=== PATIENT | female | born 1940 | race Caucasian/White ===

== ENCOUNTER 2017-03-12 16:08 | Inpatient (IN) ==
--- NOTE | 2017-03-12 16:49 | Emergency Department Note ---
Disposition Clinical Impression: Cellulitis, Lower extremity edema Disposition: Admitted As Inpatient Condition: Good Time of Disposition: 19:44 Extremity Problem HPI - General Chief complaint: ED Extremity Problem,Nontraumatic Stated complaint: Left leg swelling Time Seen by Provider: 03/12/17 16:36 Source: patient, family Mode of arrival: wheelchair Limitations: no limitations Nursing Notes Reviewed: Yes Vital Signs Reviewed: Yes - History of Present Illness HPI Narrative: Patient presents to the ED with the chief complaint of left leg swelling and possible cellulitis. For the last week. The patient has noticed some increasing redness and swelling to her left lower extremity. She does have a history of chronic lymphedema secondary to a venogram injury as a child. She states that about 5 days ago. They went to [facility] and had a negative DVT ultrasound. She was placed on Bactrim for a urinary tract infection. She states that since then the redness has increased and almost doubled in size. No fever, chills, chest pain, shortness breath, abdominal pain, nausea, vomiting or diarrhea. No pain or swelling in her other leg. Does have a history of congestive heart failure and is on Bumex. Patient presenting for worsening edema and redness Pain Scale: 9 - Related Data Home Medications Medication Instructions Recorded Confirmed Aspirin Enteric Coated [Aspirin EC] 81 mg PO DAILY 03/12/17 03/12/17 Atorvastatin Calcium [Lipitor] 80 mg PO HS 03/12/17 03/12/17 Baclofen [Lioresal] 10 mg PO BID 03/12/17 03/12/17 Bumetanide [Bumex] 1 mg PO DAILY 03/12/17 03/12/17 Cholecalciferol (Vitamin D3) 5,000 unit PO DAILY 03/12/17 03/12/17 [Vitamin D3] Citalopram [CeleXA] 20 mg PO DAILY 03/12/17 03/12/17 Docusate [Colace] 100 mg PO BID 03/12/17 03/12/17 Ferrous Sulfate 325 mg PO DAILY 03/12/17 03/12/17 Glimepiride [Amaryl] 4 mg PO QAM 03/12/17 03/12/17 Ibuprofen [Advil] 400 mg PO DAILY 03/12/17 03/12/17 Lactulose 10 gm PO DAILY 03/12/17 03/12/17 Levothyroxine Sodium [Synthroid] 200 mcg PO QAM 03/12/17 03/12/17 Metoprolol [Lopressor] 12.5 mg PO BID 03/12/17 03/12/17 Naproxen Sodium [Aleve] 220 mg PO BID 03/12/17 03/12/17 Oxygen 2 l NS AD 03/12/17 03/12/17 Potassium Chloride [K-Tab ER] 20 meq PO BID 03/12/17 03/12/17 Sulfamethoxazole/Trimeth DS 1 each PO BID 03/12/17 03/12/17 [Bactrim DS] Tramadol HCl [Ultram] 50 mg PO HS 03/12/17 03/12/17 Allergies Allergy/AdvReac Type Severity Reaction Status Date / Time levofloxacin [From Levaquin] Allergy Hives Verified 03/12/17 16:35 Penicillins Allergy Hives Verified 03/12/17 16:35 All systems ED: reviewed and negative except as stated. Constitutional: Denies: fever Cardiovascular: Reports: edema. Denies: chest pain Respiratory: Denies: dyspnea Musculoskeletal: Reports: as per HPI Integumentary: Reports: as per HPI Past Medical History - Past Medical History Attestation: Yes The following information was validated with the patient. Source: patient Medical history: Reports: COPD, diabetes, myocardial infarction, thyroid disease Psychiatric history: Reports: no psych history - Social History Smoking Status: Former smoker Smokeless Tobacco Status: No Alcohol use: Reports: none Drug use: Reports: none Physical Exam - General Limitations: no limitations General appearance: alert, in no apparent distress - Head Head exam: atraumatic, normocephalic, normal inspection - Respiratory Respiratory exam: Present: normal lung sounds bilaterally - Cardiovascular Cardiovascular exam: Present: regular rate, normal rhythm, normal heart sounds - Extremities Exam Extremities exam: Present: other (Chronic lymphedema in the left lower extremity , but new and worsening edema around the left tibial tuberosity. There is a large area of pink erythema to the herrera on the left with some weeping, and mildly tender, no crepitus, minimal warmth, no ulcerations) - Neurological Exam Neurological exam: Present: alert, oriented X3 - Psychiatric Psychiatric exam: Present: normal affect, normal mood - Skin Skin exam: Present: warm, dry, intact, erythema. Absent: normal color Course Course Narrative: Patient presenting with chronic lymphedema, but worsening swelling and redness. Concern over DVT versus cellulitis. Had a negative DVT ultrasound about 5 days ago. However, we will repeat that at this time. We will also give clindamycin and vancomycin due to failed outpatient therapy with Bactrim. We will likely admit to the hospitalist Vital Signs Temperature 98.3 F 03/12/17 16:31 Pulse Rate 66 03/12/17 16:31 Respiratory Rate 22 03/12/17 16:31 Blood Pressure 124/53 03/12/17 16:31 O2 Sat by Pulse Oximetry 91 03/12/17 16:31 Temperature 98.7 F 03/12/17 20:55 Pulse Rate 72 03/12/17 20:55 Respiratory Rate 18 03/12/17 20:55 Blood Pressure 110/67 03/12/17 20:55 O2 Sat by Pulse Oximetry 95 03/12/17 20:55 Oxygen Delivery Oxygen Delivery Nasal Cannula Extremity Problem, Nontraumati - Lab Data Result diagrams: 03/12/17 17:24 03/12/17 17:24 Lab Results 03/12/17 03/12/17 Range/Units 17:24 17:24 WBC 11.8 H (4.3-11.1) K/mcL RBC 4.30 (3.82-4.97) M/mcL Hgb 12.7 (11.5-15.4) g/dL Hct 38.5 (35.3-44.9) % MCV 89.5 (83.0-100.0) fL MCH 29.5 (28.0-33.3) pg MCHC 33.0 (31.6-35.5) g/dL RDW 13.1 (11.5-14.5) % Plt Count 264 (140-400) K/mcL MPV 9.6 (9.4-12.4) fL Immature Gran % 0.4 (0-4) % Seg Neutrophils % 65.1 % Lymphocytes % 21.8 % Monocytes % 9.9 % Eosinophils % 2.5 % Basophils % 0.3 % Neutrophils # 7.7 (1.6-8.9) K/mcL Lymphocytes # 2.6 (0.6-4.6) K/mcL Monocytes # 1.2 (0.0-1.3) K/mcL Eosinophils # 0.3 (0.0-0.6) K/mcL Basophils # 0.0 (0.0-0.2) K/mcL Sodium 132 L (136-145) mEq/L Potassium 4.3 (3.5-4.5) mEq/L Chloride 103 (98-109) mEq/L Carbon Dioxide 20 (19-29) mEq/L BUN 22 H (7-20) mg/dL Creatinine 0.98 (0.57-1.11) mg/dL Est GFR ( Amer) > 60 (> 60) Est GFR (Non-Af Amer) 55 L (> 60) BUN/Creatinine Ratio 22 (6-26) Glucose 194 H (70-99) mg/dL Calculated Osmolality 283 (280-300) Calcium 9.2 (8.6-10.8) mg/dL Attestation Statement - Attestation Attestation: I, Clarence Hutton, examined this patient and my medical decision-making was reviewed with the [employer] TECHNICIAN/PA/Advanced Practice Nurse/Resident Physician. I agree with the documented findings, disposition and treatment plan as described except to the extent set forth below. 76-year-old female presents to the emergency department with concerns of left lower extremity swelling and erythema. Patient states her symptoms have increased over the past week. She was initially seen by her primary care provider who prescribed Bactrim for urinary tract infection. She has been taking that twice a day over the past few days. Initial ultrasound 5 days ago was negative for DVT. Patient and family state that the left lower extremity has increased in size since her initial evaluation and is also become more erythematous. She denies a fever, chills, nausea, vomiting. Patient does have a history of DVT. Formal US in the ED does not show DVT today. Pt started on antibiotics for cellulitis, failing outpatient Abx. Pt comfortable with this plan.
[2017-03-12] MEDS ORDERED: Vancomycin 1,000 MG in D5% in Water 250 ML IVPB ONE (17:14)
[2017-03-12] MEDS ORDERED: Clindamycin 600 MG/50 ML 600 MG/50 ML IV.SOLN IVPB ONE (17:14)
[2017-03-12 17:42] LABS: Basophils % 0.3 %; Eosinophils # 0.3 K/mcL (0.0-0.6); Eosinophils % 2.5 %; Hematocrit 38.5 % (35.3-44.9); Hemoglobin 12.7 g/dL (11.5-15.4); Immature Granulocytes % 0.4 % (0-4); Lymphocytes # 2.6 K/mcL (0.6-4.6); Lymphocytes % 21.8 %; Mean Corpuscular Hemoglobin 29.5 pg (28.0-33.3); Mean Corpuscular Volume 89.5 fL (83.0-100.0); Mean Platelet Volume 9.6 fL (9.4-12.4); Monocytes # 1.2 K/mcL (0.0-1.3); Monocytes % 9.9 %; Neutrophils # 7.7 K/mcL (1.6-8.9); Platelet Count 264 K/mcL (140-400); Red Cell Distribution Width 13.1 % (11.5-14.5); Segmented Neutrophils % 65.1 %
[2017-03-12 17:55] LABS: Blood Urea Nitrogen 22 mg/dL (7-20); Carbon Dioxide 20 mEq/L (19-29)
[2017-03-12 18:04] LABS: BUN/Creatinine Ratio 22 (6-26); Calcium 9.2 mg/dL (8.6-10.8); Chloride 103 mEq/L (98-109); Glucose 194 mg/dL (70-99); Osmolality,Calculated 283 (280-300); Potassium 4.3 mEq/L (3.5-4.5); Sodium 132 mEq/L (136-145); eGFR For African Americans > 60 (> 60); eGFR For Non-African Americans 55 (> 60)
[2017-03-12] MEDS ORDERED: D5% in Water 1,000 ML IVC PRN (23:55)
[2017-03-12] MEDS ORDERED: *HR* Dextrose 50 % in Water (Syg) 50 ML SYRINGE IVP PRN (23:55)
[2017-03-12] MEDS ORDERED: Acetaminophen 325 MG TABLET PO PRN (23:55)
[2017-03-12] MEDS ORDERED: Naloxone 0.4 MG/ML INJ IVP PRN (23:55)
[2017-03-12] MEDS ORDERED: Dextrose Gel 15 GM PO PRN ×2 (23:55)
--- NOTE | 2017-03-13 00:10 | Internal Med History&Physical ---
Date of Encounter: 03/12/17 Time of Encounter: 23:10 Assessment and Plan (1) Cellulitis Current visit: Yes Status: Acute 1. S/P failed outpatient treatment. 2. Blood cultures drawn in ER. 3. Will treat with IV Vancomycin and Cefepime. 4. Monitor clinically and consult wound care if necessary. 5. Doppler negative for DVT per ER. Qualifiers: Site of cellulitis of extremity: lower extremity Laterality: left Qualified Code(s): L03.116 - Cellulitis of left lower limb (2) Fungal dermatitis Current visit: Yes Status: Acute 1. Will place on Diflucan and topical Nizoral cream to groin folds. (3) COPD (chronic obstructive pulmonary disease) Current visit: Yes Status: Chronic 1. NO acute process. 2. Will place on Duonebs PRN and monitor clinically. Qualifiers: COPD type: emphysema Emphysema type: unspecified Qualified Code(s): J43.9 - Emphysema, unspecified (4) Type 2 diabetes mellitus Current visit: Yes Status: Chronic 1. Hold oral meds and use SSI. 2. Monitor glucose and adjust medication as necessary. Qualifiers: Diabetes mellitus complication status: without complication Diabetes mellitus intermediate insulin use: without intermediate use Qualified Code(s): E11.9 - Type 2 diabetes mellitus without complications (5) Atypical nevus Current visit: Yes Status: Acute 1. Patient will need dermatology follow up for suspicious nevus on LLE -- concern for melanoma. (6) DVT prophylaxis Current visit: Yes Status: Acute 1. Heparin SQ. Internal Medicine - H&P: HPI Chief complaint: LLE cellulitis Admitted From: Emergency Dept Plans for Post Hospital Care: Home History of present illness: Ms. Whaley is a 76 year old female who presents with several day history of redness, warmth, pain, and swelling of her left lower extremity. She has chronic lymphedema of her left leg and has recurrent cellulitis. She was seen in urgent care in [place] last week and put on Bactrim antibiotics. Despite the antibiotic, her cellulitis worsened and she has had increasing swelling and pain. She therefore came to the ER for evaluation. She had repeat Doppler of her leg which was negative for DVT. She was subsequently admitted to the hospitalist service. Upon my assessment of the patient, she is lying in bed comfortably. She does have some redness, warmth, swelling, and pain to her left pretibial area. She had a venogram many years ago with complications resulting in chronic lymphedema. She has since then had recurrent cellulitis of her lower extremity. She denies any fevers, chills, or night sweats. She denies any chest pain or shortness of breath. She does complain of redness, pain, and pruritus in her groin due to neurogenic bladder and wearing depends diapers chronically. She has not been treated for fungal dermatitis and is at risk for it given her chronic urine leakage and diabetes. Past Med Surg Social Fam HX - Past Medical History Attestation: Yes The following information was validated with the patient. Source: patient, old records reviewed, obtained from family Medical history: COPD, diabetes, myocardial infarction, thyroid disease Psychiatric history: depression - Past Surgical History Surgical History: cholecystectomy, COLLIN/BSO - Social History Smoking Status: Former smoker Smokeless Tobacco Status: No Alcohol use: none Drug use: none Current living situation: Home, With Family - Family History Mother Living Status: Age at : 80 Hx Family Cardiac Disorders: Yes (htn, cva) Hx Family Respiratory Disorders: Yes (copd emphysema) Hx Family Cancer: Yes (breast ca) Father Living Status: Age at : 70 Cause of : massive heart attack Internal Medicine - H&P: Meds Aspirin Enteric Coated [Aspirin EC] 81 mg PO DAILY 03/12/17 [History] Atorvastatin Calcium [Lipitor] 80 mg PO HS 03/12/17 [History] Baclofen [Lioresal] 10 mg PO BID 03/12/17 [History] Bumetanide [Bumex] 1 mg PO DAILY 03/12/17 [History] Cholecalciferol (Vitamin D3) [Vitamin D3] 5,000 unit PO DAILY 03/12/17 [History] Citalopram [CeleXA] 20 mg PO DAILY 03/12/17 [History] Docusate [Colace] 100 mg PO BID 03/12/17 [History] Ferrous Sulfate 325 mg PO DAILY 03/12/17 [History] Glimepiride [Amaryl] 4 mg PO QAM 03/12/17 [History] Ibuprofen [Advil] 400 mg PO DAILY 03/12/17 [History] Lactulose 10 gm PO DAILY 03/12/17 [History] Levothyroxine Sodium [Synthroid] 200 mcg PO QAM 03/12/17 [History] Metoprolol [Lopressor] 12.5 mg PO BID 03/12/17 [History] Naproxen Sodium [Aleve] 220 mg PO BID 03/12/17 [History] Oxygen 2 l NS AD 03/12/17 [History] Potassium Chloride [K-Tab ER] 20 meq PO BID 03/12/17 [History] Sulfamethoxazole/Trimeth DS [Bactrim DS] 1 each PO BID 03/12/17 [History] Tramadol HCl [Ultram] 50 mg PO HS 03/12/17 [History] 3 Allergy/AdvReac Type Severity Reaction Status Date / Time levofloxacin [From Levaquin] Allergy Hives Verified 03/12/17 16:35 Penicillins Allergy Hives Verified 03/12/17 16:35 - Constitutional Constitutional: no chills, no fever(s) - EENT Eyes: no blurry vision, no change in vision Ears: no tinnitus Nose, mouth and throat: no nasal congestion, no sinus pressure, no sore throat - Cardiovascular Cardiovascular ROS IM: no chest pain, no dyspnea - Respiratory Respiratory: no cough, no hemoptysis - Gastrointestinal Gastrointestinal: no abdominal pain, no diarrhea, no nausea, no vomiting - Genitourinary Genitourinary: dysuria, no flank pain, no hematuria - Musculoskeletal Musculoskeletal ROS IM: arthralgias, no back pain - Integumentary Integumentary IM: erythema (groin) - Neurological Neurological ROS: other (hard of hearing), no focal weakness, no frequent falls , no headache(s) - Psychiatric Psychiatric: no anxiety, no depression - Endocrine Endocrine IM: no polydipsia, no polyuria - Allergic/Immunologic Allergic/Immunologic: wheezing - Constitutional Vitals: Temp Pulse Resp BP Pulse Ox 98.1 F 78 22 152/65 94 03/12/17 23:24 03/12/17 23:24 03/12/17 23:24 03/12/17 23:24 03/12/17 23:24 General appearance: Present: cooperative, A&O X 3, pleasant, no acute distress Exam: hard of hearing - Head Head exam: Present: atraumatic, normal inspection - Eye Eye exam: Present: EOMI, normal appearance, PERRL. Absent: scleral icterus Pupils: Present: normal accommodation - ENT ENT exam: Present: mucous membranes dry, normal exam - Neck Neck exam general surgery: Present: full ROM, supple. Absent: tenderness - Respiratory Respiratory exam: Present: rhonchi, wheezes (mild). Absent: chest wall tenderness, rales - Cardiovascular Cardiovascular exam: Present: RRR, +S1, +S2. Absent: diastolic murmur, systolic murmur - GI/Abdominal GI/Abdominal exam: Present: normal bowel sounds, soft. Absent: hepatomegaly, mass, splenomegaly - External exam: Present: erythema (red, excoriated rash in groin folds) - Extremities Exam Extremities exam: Present: calf tenderness (left calf/knee), tenderness (left pretibial area), warm (red, warm, tender pre-tibial cellulitis), radial pulses palpable and symmetrical - Back Exam Back exam: Absent: CVA tenderness (L), CVA tenderness (R) - Neurological Exam Neurological exam: Present: alert, CN II-XII intact, oriented X3, no focal deficits - Psychiatric Psychiatric exam: Present: normal affect, normal mood - Skin Skin exam: Present: dry, rash (left pretibial area and groin), warm Additional comments: large atypical nevus along left herrera ~ 1 cm in size Internal Med - H&P Results - Labs CBC & Chem 7: 03/12/17 17:24 03/12/17 17:24
[2017-03-13] MEDS: Ketoconazole 2% CRM 15 GM TUBE TP SCH ×3 (00:50→21:09)
[2017-03-13] MEDS: Fluconazole 100 MG TABLET PO SCH ×2 (00:51→08:19)
[2017-03-13] MEDS: *HR* Morphine 2 MG/ML SYRINGE IVP PRN ×2 (00:51→21:17)
[2017-03-13] MEDS: *HR* Heparin 5,000 UNIT/ML VIAL SQ SCH ×4 (00:51→21:09)
[2017-03-13] MEDS: Insulin LISPRO 300 UNITS/3 ML VIAL SQ SCH ×5 (00:52→21:10)
[2017-03-13] MEDS ORDERED: Insulin DETEMIR 100 UNIT/ML X5UNITS SQ SCH (03:30)
[2017-03-13] MEDS: *HR* HYDROcodone/Acet 5/325 mg TABLET PO PRN ×5 (03:58→23:21)
[2017-03-13] MEDS ORDERED: Insulin DETEMIR 100 UNIT/ML X5UNITS SQ ONE (04:00)
[2017-03-13 06:21] LABS: Basophils % 0.5 %; Eosinophils # 0.3 K/mcL (0.0-0.6); Eosinophils % 3.4 %; Hematocrit 35.2 % (35.3-44.9); Hemoglobin 11.5 g/dL (11.5-15.4); Immature Granulocytes % 0.4 % (0-4); Lymphocytes # 2.9 K/mcL (0.6-4.6); Lymphocytes % 33.8 %; Mean Corpuscular HGB Conc 32.7 g/dL (31.6-35.5); Mean Corpuscular Hemoglobin 29.3 pg (28.0-33.3); Mean Corpuscular Volume 89.8 fL (83.0-100.0); Mean Platelet Volume 9.8 fL (9.4-12.4); Monocytes % 11.2 %; Neutrophils # 4.4 K/mcL (1.6-8.9); Platelet Count 254 K/mcL (140-400); Red Blood Count 3.92 M/mcL (3.82-4.97); Segmented Neutrophils % 50.7 %
[2017-03-13 06:38] LABS: Alanine Aminotransferase 31 Units/L (0-55); Albumin 2.5 g/dL (3.5-5.0); Albumin/Globulin Ratio 0.7 (1.1-2.2); Alkaline Phosphatase 85 Units/L (38-126); Aspartate Amino Transferase 27 Units/L (5-34); BUN/Creatinine Ratio 22 (6-26); Bilirubin,Total 0.3 mg/dL (0.2-1.2); Blood Urea Nitrogen 22 mg/dL (7-20); Calcium 8.7 mg/dL (8.6-10.8); Carbon Dioxide 21 mEq/L (19-29); Chloride 105 mEq/L (98-109); Globulin 3.7 g/dL (2.4-3.5); Glucose 274 mg/dL (70-99); Magnesium 1.8 mg/dL (1.6-2.6); Osmolality,Calculated 291 (280-300); Potassium 4.2 mEq/L (3.5-4.5); Total Protein 6.2 g/dL (6.0-8.3); eGFR For African Americans > 60 (> 60); eGFR For Non-African Americans 54 (> 60)
[2017-03-13 06:43] LABS: Sodium 134 mEq/L (136-145)
[2017-03-13] MEDS: Cefepime HCl 1,000 MG in D5% in Water (Mini-Bag+) 100 ML IVPB SCH ×2 (06:55→17:04)
[2017-03-13] MEDS: Cholecalciferol (D-3) 1,000 UNIT TABLET PO SCH (08:19)
[2017-03-13] MEDS: Ibuprofen 400 MG TABLET PO SCH (08:19)
[2017-03-13] MEDS: Aspirin Enteric Coated 81 MG Tablet PO SCH (08:19)
[2017-03-13] MEDS: Baclofen 10 MG TABLET PO SCH ×2 (08:20→21:09)
--- NOTE | 2017-03-13 10:21 | Venous Imaging Report ---
LE Venous Duplex Patient Name:Jessica Whaley Order Number:[id number] Procedure Date:03/12/2017 Date:1940ge:76 yrs Gender:Female Location:[facility] ED Room #: ER25 Community Arts Worker:Christi Khan RDCS, RVT Referring MD:DO Alberta Chan MD:Santy Malin MD , FACS Primary Indications:Lymphedema, cellulitis Secondary Indications: Risk Factors Yes/No Hx of DVT Yes Impressions: Left lower extremity: normal superficial and deep exam. Recommendations: Preliminary given to Dr Hutton in ED. Findings Venous Duplex Results: Left: Venous imaging of the lower extremity reveals full patency and normal vessel compressibility of the left distal iliac, left common femoral, left superficial femoral, left popliteal, left posterior tibial, left peroneal, left great saphenous and left lesser saphenous. Doppler signals in the evaluated veins were normal. Prior Study: No change compared to prior study dated: 03/07/2017. Lower Extremity Venous Duplex Side Vein Compress Spontaneous Flow Augment Diameter (cm) Depth (cm) Left Distal Iliac Normal Yes Phasic Yes Left Common Femoral Normal Yes Phasic Yes Left Superficial Femoral Normal Yes Phasic Yes Left Popliteal Normal Yes Phasic Yes Left Posterior Tibial Normal Yes Phasic Yes Left Peroneal Normal Yes Phasic Yes Left Great Saphenous Normal Yes Phasic Yes Left Lesser Saphenous Normal Yes Phasic Yes Updated by Santy Malin MD, FACS on 03/13/2017 10:14:08 AM Santy Malin MD electronically signed on 03/13/2017 10:14:37 AM with status of Final
--- NOTE | 2017-03-13 10:34 | Internal Med Progress Note ---
Date of Encounter: 03/13/17 Time of Encounter: 10:32 - Assessment and plan (1) Cellulitis Current Visit: Yes Status: Acute Assessment and plan: S/P failed outpatient treatment Improving Blood cultures - P Cont empirical abx with IV Vancomycin and Cefepime. Does have venous stasis changes too Keep legs elevated..will use JANEE wraps Doppler negative for DVT Qualifiers: Site of cellulitis of extremity: lower extremity Laterality: left Qualified Code(s): L03.116 - Cellulitis of left lower limb (2) Lower extremity edema Current Visit: Yes Status: Acute Assessment and plan: due to venous stasis changes will use JANEE wraps (3) Fungal dermatitis Current Visit: Yes Status: Acute Assessment and plan: on topical anti fungal cream (4) COPD (chronic obstructive pulmonary disease) Current Visit: Yes Status: Chronic Assessment and plan: not in exacerbation cont home regimen Qualifiers: COPD type: emphysema Emphysema type: unspecified Qualified Code(s): J43.9 - Emphysema, unspecified (5) Type 2 diabetes mellitus Current Visit: Yes Status: Chronic Assessment and plan: currently on ISS Qualifiers: Diabetes mellitus complication status: without complication Diabetes mellitus terminal gauger insulin use: without terminal gauger use Qualified Code(s): E11.9 - Type 2 diabetes mellitus without complications (6) DVT prophylaxis Current Visit: Yes Status: Acute Assessment and plan: on Heparin SQ - Subjective Interval history: Ms. Whaley is a 76 year old female who presents with several day history of redness, warmth, pain, and swelling of her left lower extremity. She has chronic lymphedema of her left leg and has recurrent cellulitis. She was seen in urgent care in [place] last week and put on Bactrim antibiotics. Despite the antibiotic, her cellulites worsened and she has had increasing swelling and pain. She therefore came to the ER for evaluation. She had repeat Doppler of her leg which was negative for DVT. She was subsequently admitted to the hospitalist service. Pt was started on empirical abx with Vancomycin and Cefepime. Her cellulites seems to be improving. Denied any pain in legs.. Swelling also improved. No CP / SOB. Resting comfortably now - Constitutional Vitals: Temp Pulse Resp BP Pulse Ox 97.7 F 74 18 104/56 96 03/13/17 07:18 03/13/17 07:18 03/13/17 07:18 03/13/17 07:18 03/13/17 07:18 General appearance: Present: cooperative, A&O X 3, pleasant, no acute distress - Head Head exam: Present: atraumatic, normal inspection - Respiratory Respiratory exam: Present: decreased breath sounds, wheezes. Absent: rales, respiratory distress, rhonchi - Cardiovascular Cardiovascular exam: Present: RRR, +S1, +S2. Absent: diastolic murmur, gallop, rubs, systolic murmur - GI/Abdominal GI/Abdominal exam: Present: distended, normal bowel sounds, soft. Absent: rebound, rigid, tenderness - Extremities Exam Extremities exam: Present: pedal edema, warm. Absent: calf tenderness, tenderness Additional comments: improving erythema in Left leg and swelling in both legs - Psychiatric Psychiatric exam: Present: normal affect, normal mood Internal Medicine: Result - Labs CBC & Chem 7: 03/13/17 05:20 03/13/17 05:20 Labs: Short CBC 03/13/17 Range/Units 05:20 WBC 8.6 (4.3-11.1) K/mcL Hgb 11.5 (11.5-15.4) g/dL Hct 35.2 L (35.3-44.9) % Plt Count 254 (140-400) K/mcL Neutrophils # 4.4 (1.6-8.9) K/mcL BMP 03/13/17 05:20 Sodium 134 L Potassium 4.2 Chloride 105 Carbon Dioxide 21 BUN 22 H Creatinine 1.01 Glucose 274 H Calcium 8.7 Liver Function 03/13/17 Range/Units 05:20 Total Bilirubin 0.3 (0.2-1.2) mg/dL AST 27 (5-34) Units/L ALT 31 (0-55) Units/L Alkaline Phosphatase 85 (38-126) Units/L Albumin 2.5 L (3.5-5.0) g/dL Consult Discharge Plan - Plan Referrals: Hali Correia, APARTMENT MAINTENANCE SUPERVISOR [Primary Care Provider] -
[2017-03-13] MEDS ORDERED: Lactulose Oral Soln 20 GM/30 ML UDC PO SCH (21:00)
[2017-03-13] MEDS: MethylPREDNISolone 40 MG/ML VIAL IVP SCH (23:38)
[2017-03-14] MEDS: *HR* HYDROcodone/Acet 5/325 mg TABLET PO PRN (04:46)
[2017-03-14] MEDS: Cefepime HCl 1,000 MG in D5% in Water (Mini-Bag+) 100 ML IVPB SCH (06:32)
[2017-03-14] MEDS: *HR* Heparin 5,000 UNIT/ML VIAL SQ SCH (06:32)
[2017-03-14] MEDS: MethylPREDNISolone 40 MG/ML VIAL IVP SCH (08:19)
[2017-03-14] MEDS: Insulin LISPRO 300 UNITS/3 ML VIAL SQ SCH ×2 (08:19→12:37)
[2017-03-14] MEDS: Aspirin Enteric Coated 81 MG Tablet PO SCH (08:23)
[2017-03-14] MEDS: Baclofen 10 MG TABLET PO SCH (08:23)
[2017-03-14] MEDS: Ketoconazole 2% CRM 15 GM TUBE TP SCH ×2 (08:23→12:37)
[2017-03-14] MEDS: Fluconazole 100 MG TABLET PO SCH (08:23)
[2017-03-14] MEDS: Ibuprofen 400 MG TABLET PO SCH (08:24)
[2017-03-14] MEDS: Cholecalciferol (D-3) 1,000 UNIT TABLET PO SCH (08:24)
--- NOTE | 2017-03-14 11:02 | Discharge Summary ---
Date of Encounter: 03/14/17 Time of Encounter: 10:55 - Discharge Diagnosis (1) Cellulitis Priority: Primary Status: Acute Qualifiers: Site of cellulitis of extremity: lower extremity Laterality: left Qualified Code(s): L03.116 - Cellulitis of left lower limb (2) Lower extremity edema Priority: Secondary Status: Chronic (3) Fungal dermatitis Priority: Primary Status: Acute (4) COPD (chronic obstructive pulmonary disease) Priority: Secondary Status: Chronic Qualifiers: COPD type: emphysema Emphysema type: unspecified Qualified Code(s): J43.9 - Emphysema, unspecified (5) Type 2 diabetes mellitus Priority: Secondary Status: Chronic Qualifiers: Diabetes mellitus complication status: without complication Diabetes mellitus half-way insulin use: without half-way use Qualified Code(s): E11.9 - Type 2 diabetes mellitus without complications (6) DVT prophylaxis Priority: Secondary Status: Acute (7) Skin ulcer of groin Priority: Secondary Status: Chronic Qualifiers: Non-pressure ulcer stage: unspecified non-pressure ulcer stage Qualified Code(s): L98.499 - Non-pressure chronic ulcer of skin of other sites with unspecified severity - Discharge Medications Prescriptions: metFORMIN [Glucophage] 500 mg PO BIDWM #60 tablet Home Medications: Aspirin Enteric Coated [Aspirin EC] 81 mg PO DAILY 03/12/17 [History] Atorvastatin Calcium [Lipitor] 80 mg PO HS 03/12/17 [History] Baclofen [Lioresal] 10 mg PO BID 03/12/17 [History] Bumetanide [Bumex] 1 mg PO DAILY 03/12/17 [History] Cholecalciferol (Vitamin D3) [Vitamin D3] 5,000 unit PO DAILY 03/12/17 [History] Citalopram [CeleXA] 20 mg PO DAILY 03/12/17 [History] Docusate [Colace] 100 mg PO BID 03/12/17 [History] Ferrous Sulfate 325 mg PO DAILY 03/12/17 [History] Glimepiride [Amaryl] 4 mg PO QAM 03/12/17 [History] Lactulose 10 gm PO DAILY 03/12/17 [History] Levothyroxine Sodium [Synthroid] 200 mcg PO QAM 03/12/17 [History] Metoprolol [Lopressor] 12.5 mg PO BID 03/12/17 [History] Oxygen 2 l NS AD 03/12/17 [History] Tramadol HCl [Ultram] 50 mg PO HS 03/12/17 [History] Potassium Chloride [K-Tab ER] 20 meq PO DAILY #0 03/14/17 [Rx] Sulfamethoxazole/Trimeth DS [Bactrim Ds] 1 each PO BID 7 Days 03/14/17 [Rx] metFORMIN [Glucophage] 500 mg PO BIDWM #60 tablet 03/14/17 [Rx] Allergies/Adverse Reactions: 3 Allergy/AdvReac Type Severity Reaction Status Date / Time levofloxacin [From Levaquin] Allergy Hives Verified 03/12/17 16:35 Penicillins Allergy Hives Verified 03/12/17 16:35 morphine AdvReac Itching Verified 03/14/17 07:29 Date of admission: 03/12/17 23:55 Primary care physician: Hali Correia CNP Consults: 03/13/17 07:12 Consult to Evp Chief Exploration Officer [CONS] Routine Reason for SW Consult: HOME O2- RADHA & BIPAP@ , PASSPORT 03/13/17 11:34 Consult to Wound Care [CONS] Routine Reason for Consult: Bilat groin wounds. PUPS team at bedside to notify Vianney Nicolas. Call Completed: Yes - Patient Status Disposition: Home Health Service Condition: Good Overall status at discharge: patient is back to baseline - Discharge Instructions Follow Up With: Hali Correia CNP [Primary Care Provider] - Additional Instructions: Please follow the wound care instructions given by Wound care nurse for daily wound dressing changes - Diet and Activity Activity: increase activity as tolerated Diet: low salt diet Hospital course: Ms. Whaley is a 76 year old female who presents with several day history of redness, warmth, pain, and swelling of her left lower extremity. She has chronic lymphedema of her left leg and has recurrent cellulites. She was seen in urgent care in [place] last week and put on Bactrim antibiotics. Despite the antibiotic, her cellulites worsened and she has had increasing swelling and pain. She therefore came to the ER for evaluation. She had repeat Doppler of her leg which was negative for DVT. She was subsequently admitted to the hospitalist service. Pt was started on empirical abx with Vancomycin and Cefepime. Her cellulites seems to be improving. She also happened to have chronic non pressure ulcers with small tunneling in both groins Rt > Lt. She was seen by our wound care nurse, who recommend to continue local wound care daily. She also has slightly uncontrolled blood sugars since she was placed on high dose IV steroids due to IV line infiltrates rash. Her rash resolved, no more pain in arm. She does not need steroids any more. Her recent Hba1c 8.4 from 01/2017, so I added Metformin 500mg PO BID for her current home med Amaryl for better BS control. She does have chronic lymphedema in Left leg, recommend to use JANEE wraps. - Time Spent with Patient Total time spent providing and/or coordinating discharge services: - Constitutional Vitals: Temp Pulse Resp BP Pulse Ox 97.7 F 93 93 121/68 93 03/14/17 07:03/14/17 07:03/14/17 07:03/14/17 07:03/14/17 04:11 General appearance: Present: cooperative, A&O X 3, pleasant, no acute distress - Head Head exam: Present: atraumatic, normal inspection - Respiratory Respiratory exam: Present: decreased breath sounds. Absent: rales, respiratory distress, rhonchi, wheezes - Cardiovascular Cardiovascular exam: Present: RRR, +S1, +S2. Absent: systolic murmur - GI/Abdominal GI/Abdominal exam: Present: soft. Absent: rebound, rigid, tenderness - Extremities Exam Extremities exam: Present: pedal edema (chronic edema in Left leg). Absent: calf tenderness, tenderness, warm Additional comments: Improving erythema in Left leg - Neurological Exam Neurological exam: Present: alert, oriented X3 - Psychiatric Psychiatric exam: Present: normal affect, normal mood
--- NOTE | 2017-03-14 11:05 | Physician Discharge Referral ---
Home Health/Hosp Referral Info Transfer to: Home Health Provider in Charge Post Discharge: PCP - Diagnosis (1) Cellulitis Status: Acute (2) Lower extremity edema Status: Chronic (3) Fungal dermatitis Status: Acute (4) COPD (chronic obstructive pulmonary disease) Status: Chronic (5) Type 2 diabetes mellitus Status: Chronic (6) DVT prophylaxis Status: Acute (7) Skin ulcer of groin Status: Chronic - Respiratory Orders Smoking Cessation: Smoking cessation has been advised. For more information, call the [place] Tobacco Quit Line at 8-923-OBLL-NOW. - Activity Activity Orders: Up ad aiyana - Services Needed Following services are medically necessary services: Nursing, Physical Therapy, Occupational Therapy Home Care Orders: Wound care in both Groin - Transfer Medications Prescriptions: metFORMIN [Glucophage] 500 mg PO BIDWM #60 tablet Home Medications: Aspirin Enteric Coated [Aspirin EC] 81 mg PO DAILY 03/12/17 [History] Atorvastatin Calcium [Lipitor] 80 mg PO HS 03/12/17 [History] Baclofen [Lioresal] 10 mg PO BID 03/12/17 [History] Bumetanide [Bumex] 1 mg PO DAILY 03/12/17 [History] Cholecalciferol (Vitamin D3) [Vitamin D3] 5,000 unit PO DAILY 03/12/17 [History] Citalopram [CeleXA] 20 mg PO DAILY 03/12/17 [History] Docusate [Colace] 100 mg PO BID 03/12/17 [History] Ferrous Sulfate 325 mg PO DAILY 03/12/17 [History] Glimepiride [Amaryl] 4 mg PO QAM 03/12/17 [History] Lactulose 10 gm PO DAILY 03/12/17 [History] Levothyroxine Sodium [Synthroid] 200 mcg PO QAM 03/12/17 [History] Metoprolol [Lopressor] 12.5 mg PO BID 03/12/17 [History] Oxygen 2 l NS AD 03/12/17 [History] Tramadol HCl [Ultram] 50 mg PO HS 03/12/17 [History] Potassium Chloride [K-Tab ER] 20 meq PO DAILY #0 03/14/17 [Rx] Sulfamethoxazole/Trimeth DS [Bactrim Ds] 1 each PO BID 7 Days 03/14/17 [Rx] metFORMIN [Glucophage] 500 mg PO BIDWM #60 tablet 03/14/17 [Rx] Allergies/Adverse Reactions: 3 Allergy/AdvReac Type Severity Reaction Status Date / Time levofloxacin [From Levaquin] Allergy Hives Verified 03/12/17 16:35 Penicillins Allergy Hives Verified 03/12/17 16:35 morphine AdvReac Itching Verified 03/14/17 07:29 Certification: Further, I certify that my clinical findings support that this patient is homebound (i.e. absences from home require considerable and taxing effort and are for medical reasons or scientologist services or infrequently or short duration when for other reasons) because: Homebound Reason: Patient requires assistance of a person or device to safely leave home Attestation: My signature below is to certify that this patient is under my care and that I, or nurse practitioner, or a physician's chiropractic assistant working with me, has a face-to -face encounter with this patient.
[2017-03-14 12:34] VITALS: BP 153/88
== END 2017-03-14 15:24 | disposition home health service (06) | DRG 603 ==
LOC: EMEROO 16:08 → 3NENU 16:08
PROVIDERS: ADMIT Pediatrics; ATTEND Internal Medicine

== ENCOUNTER 2017-08-15 14:15 | Inpatient (IN) ==
[2017-08-15] MEDS ORDERED: 0.9 % Sodium Chloride 1,000 ML IVC ONE (14:29)
[2017-08-15 15:02] LABS: Basophils # 0.1 K/mcL (0.0-0.2); Basophils % 0.5 %; Eosinophils # 0.3 K/mcL (0.0-0.6); Eosinophils % 3.2 %; Hematocrit 32.7 % (35.3-44.9); Hemoglobin 10.8 g/dL (11.5-15.4); Lymphocytes # 1.5 K/mcL (0.6-4.6); Lymphocytes % 16.3 %; Mean Corpuscular Hemoglobin 26.4 pg (28.0-33.3); Mean Platelet Volume 8.6 fL (9.4-12.4); Monocytes # 1.3 K/mcL (0.0-1.3); Monocytes % 13.9 %; Platelet Count 355 K/mcL (140-400); Red Blood Count 4.09 M/mcL (3.82-4.97); Red Cell Distribution Width 14.9 % (11.5-14.5); Segmented Neutrophils % 65.1 %
[2017-08-15 15:04] LABS: Bilirubin,Urine Small (Negative); Blood,Urine Small (Negative); Color,Urine Red (Yellow); Glucose,Urine (UA) Normal (Normal); Ketones,Urine Trace mg/dL (Negative); Leukocyte Esterase,Urine Moderate (Negative); Nitrite,Urine Negative (Negative); Protein,Urine 100 mg/dL (Neg-Trace); Specific Gravity,Urine 1.018 (1.010-1.025); Urobilinogen,Urine Normal (Normal)
[2017-08-15 15:08] LABS: Bacteria,Urine Moderate per hpf (None-Few); Hyaline Casts,Urine None Seen per lpf (None-Few); RBC,Urine 15-30 per hpf (0-3); Squamous Epithelial Cell,Urine Many per lpf (None-Few); WBC,Urine TNTC per hpf (0-3)
[2017-08-15 15:14] LABS: Albumin 2.8 g/dL (3.5-5.7); Bilirubin,Total 0.5 mg/dL (0.3-1.0); Calcium 8.4 mg/dL (8.6-10.3); Carbon Dioxide 21 mEq/L (23-29); Chloride 104 mEq/L (98-107); Magnesium 1.3 mg/dL (1.6-2.6); Potassium 3.5 mEq/L (3.5-5.1); Sodium 134 mEq/L (136-145)
[2017-08-15 15:20] LABS: Clarity,Urine Slightly Cloudy (Clear)
[2017-08-15 15:20] LABS: Alanine Aminotransferase 17 Units/L (7-52); Albumin/Globulin Ratio 0.8 (1.1-2.2); Alkaline Phosphatase 64 Units/L (34-104); Aspartate Amino Transferase 23 Units/L (13-39); BUN/Creatinine Ratio 16 (6-26); Blood Urea Nitrogen 15 mg/dL (8-23); Globulin 3.5 g/dL (2.4-3.5); Glucose 146 mg/dL (70-105); Osmolality,Calculated 281 (280-300); Phosphorous 1.9 mg/dL (2.7-4.5); Total Protein 6.3 g/dL (6.4-8.9); eGFR For African Americans > 60 (> 60); eGFR For Non-African Americans 58 (> 60)
--- NOTE | 2017-08-15 16:00 | Emergency Department Note ---
START Narrative - START START: I examined this patient and my medical decision-making was reviewed with the FERTILIZER APPLICATOR/PA/Advanced Practice Nurse/Resident Physician. I agree with the documented findings, disposition and treatment plan as described except to the extent set forth below. ED attending: Patient's emergency medicine resident Dr. SARAI COCHRAN Please see copy of this note for H&P evaluation and management and ED disposition. We both had independent [id number] time in contact with this patient. Briefly: 76-year-old female by EMS from [facility] facility loose stools concerns about Clostridium difficile infection. Patient getting IV fluids and lab workup with appropriate isolation precautions. Admission anticipated. Disposition pending.
[2017-08-15] MEDS ORDERED: Vancomycin Oral Soln 250 MG/5 ML UDC PO STA (16:42)
[2017-08-15] MEDS ORDERED: cefTRIAXone 1,000 MG in Water for inj. (sterile) 20 ML 10 ML IVP ONE (16:43)
--- NOTE | 2017-08-15 16:47 | Emergency Department Note ---
Disposition Clinical Impression: C. difficile diarrhea UTI (urinary tract infection) Qualifiers: Urinary tract infection type: site unspecified Hematuria presence: with hematuria Qualified Code(s): N39.0 - Urinary tract infection, site not specified ; R31.9 - Hematuria, unspecified; R31.9 - Hematuria, unspecified Disposition: Admitted As Inpatient Condition: Good Referrals: Hali Correia JUNIOR DATABASE ADMINISTRATOR [Primary Care Provider] - Weakness HPI - General Chief complaint: ED Weakness Stated complaint: dehydration, c-diff (+) last week Time Seen by Provider: 08/15/17 14:21 Source: patient, EMS Limitations: no limitations Nursing Notes Reviewed: Yes Vital Signs Reviewed: Yes - History of Present Illness HPI Narrative: Patient presents today from home where she lives with daughter. Patient was seen at outside emergency department approximately 1 week ago and diagnosed with C. difficile diarrhea. They state that her electrolytes and dehydration looked okay so they sent her home with Flagyl. Patient is continued to have diarrhea up to 10 times per day. Is described as foul smelling. The patient has had incontinence and not been able to make it to the restroom. She denies any abdominal pain or increase in those symptoms however daughter is concerned about dehydration which does seem apparent on exam as her tongue is significantly dry and decreased skin turgor pressure. The patient has a chronic indwelling Moran which is draining dark cloudy urine. The patient is overall pleasant and denies fever or chills. She denies chest pain or shortness of breath. She does have chronic left lower leg lymphedema and mild erythema which is stated as chronic Pain Scale: 2 - Related Data Home Medications Medication Instructions Recorded Confirmed Aspirin Enteric Coated [Aspirin EC] 81 mg PO DAILY 03/12/17 03/12/17 Atorvastatin Calcium [Lipitor] 80 mg PO HS 03/12/17 03/12/17 Baclofen [Lioresal] 10 mg PO BID 03/12/17 03/12/17 Bumetanide [Bumex] 1 mg PO DAILY 03/12/17 03/12/17 Cholecalciferol (Vitamin D3) 5,000 unit PO DAILY 03/12/17 03/12/17 [Vitamin D3] Citalopram [CeleXA] 20 mg PO DAILY 03/12/17 03/12/17 Docusate [Colace] 100 mg PO BID 03/12/17 03/12/17 Ferrous Sulfate 325 mg PO DAILY 03/12/17 03/12/17 Glimepiride [Amaryl] 4 mg PO QAM 03/12/17 03/12/17 Lactulose 10 gm PO DAILY 03/12/17 03/12/17 Levothyroxine Sodium [Synthroid] 200 mcg PO QAM 03/12/17 03/12/17 Metoprolol [Lopressor] 12.5 mg PO BID 03/12/17 03/12/17 Oxygen 2 l NS AD 03/12/17 03/12/17 Tramadol HCl [Ultram] 50 mg PO HS 03/12/17 03/12/17 Previous Rx's Medication Instructions Recorded Potassium Chloride [K-Tab ER] 20 meq PO DAILY #0 03/14/17 Sulfamethoxazole/Trimeth DS 1 each PO BID 7 Days 03/14/17 [Bactrim Ds] metFORMIN [Glucophage] 500 mg PO BIDWM #60 tablet 03/14/17 Allergies Allergy/AdvReac Type Severity Reaction Status Date / Time levofloxacin [From Levaquin] Allergy Hives Verified 03/12/17 16:35 Penicillins Allergy Hives Verified 03/12/17 16:35 morphine AdvReac Itching Verified 03/14/17 07:29 All systems ED: reviewed and negative except as stated. Review of Systems: As Per HPI Past Medical History - Past Medical History Medical history: Reports: COPD, diabetes, myocardial infarction, thyroid disease Surgical history: Reports: cholecystectomy, COLLIN/BSO Psychiatric history: Reports: depression - Social History Smoking Status: Former smoker Smokeless Tobacco Status: No Alcohol use: Reports: none Drug use: Reports: none Physical Exam General: No acute distress Head: Normocephalic Atraumatic Eyes: PERRL, EOMI ENT: Airway patent, no stridor; dry mucous membranes Neck: supple, no meningismus Chest: Lungs clear to auscultation bilateral Cardiac: Regular rhythm Abdomen: soft, nontender, nondistended; no guarding, rebound, or tenderness to percussion : Moran catheter in place. Musculoskeletal: Calves symmetric, nontender, no palpable cord Skin: No rash, normal skin tone Neuro: Alert and Oriented to person, place, and time; No focal deficit, CN 2-12 symmetric and intact - General Limitations: no limitations General appearance: alert, in no apparent distress Course - Reevaluation(s) Reevaluation #1: Chest x-ray and KUB are unremarkable. No toxic megacolon. Patient's WBC is not significantly elevated. Patient does have significant dehydration and the known positive C. difficile test from prior. Continued clinical symptoms. C. difficile treatment will be escalated to by mouth vancomycin. The patient will also receive ceftriaxone for urinary tract infection. Patient will be admitted to the hospitalist for further management. Vital Signs Temperature 97.6 F 08/15/17 14:18 Pulse Rate 71 08/15/17 14:18 Respiratory Rate 17 08/15/17 14:18 Blood Pressure 93/58 08/15/17 14:18 O2 Sat by Pulse Oximetry 100 08/15/17 14:18 Temperature 97.6 F 08/15/17 14:18 Pulse Rate 71 08/15/17 14:18 Respiratory Rate 17 08/15/17 14:18 Blood Pressure 93/58 08/15/17 14:18 O2 Sat by Pulse Oximetry 100 08/15/17 14:18 Oxygen Delivery Oxygen Delivery Nasal Cannula Weakness - Lab Data Result diagrams: 08/15/17 14:50 08/15/17 14:50 Lab Results 08/15/17 08/15/17 08/15/17 Range/Units 14:50 14:50 14:50 WBC 9.2 (4.3-11.1) K/mcL RBC 4.09 (3.82-4.97) M/mcL Hgb 10.8 L (11.5-15.4) g/dL Hct 32.7 L (35.3-44.9) % MCV 80.0 L (83.0-100.0) fL MCH 26.4 L (28.0-33.3) pg MCHC 33.0 (31.6-35.5) g/dL RDW 14.9 H (11.5-14.5) % Plt Count 355 (140-400) K/mcL MPV 8.6 L (9.4-12.4) fL Immature Gran % 1.0 (0-4) % Seg Neutrophils % 65.1 % Lymphocytes % 16.3 % Monocytes % 13.9 % Eosinophils % 3.2 % Basophils % 0.5 % Neutrophils # 6.0 (1.6-8.9) K/mcL Lymphocytes # 1.5 (0.6-4.6) K/mcL Monocytes # 1.3 (0.0-1.3) K/mcL Eosinophils # 0.3 (0.0-0.6) K/mcL Basophils # 0.1 (0.0-0.2) K/mcL Sodium 134 L (136-145) mEq/L Potassium 3.5 (3.5-5.1) mEq/L Chloride 104 (98-107) mEq/L Carbon Dioxide 21 L (23-29) mEq/L BUN 15 (8-23) mg/dL Creatinine 0.94 (0.60-1.20) mg/dL Est GFR ( Amer) > 60 (> 60) Est GFR (Non-Af Amer) 58 L (> 60) BUN/Creatinine Ratio 16 (6-26) Glucose 146 H (70-105) mg/dL Calculated Osmolality 281 (280-300) Calcium 8.4 L (8.6-10.3) mg/dL Phosphorus 1.9 L (2.7-4.5) mg/dL Magnesium 1.3 L (1.6-2.6) mg/dL Total Bilirubin 0.5 (0.3-1.0) mg/dL AST 23 (13-39) Units/L ALT 17 (7-52) Units/L Alkaline Phosphatase 64 (34-104) Units/L Troponin I < 0.03 (< 0.04) ng/mL Serum Total Protein 6.3 L (6.4-8.9) g/dL Albumin 2.8 L (3.5-5.7) g/dL Globulin 3.5 (2.4-3.5) g/dL Albumin/Globulin Ratio 0.8 L (1.1-2.2) Urine Color (Yellow) Urine Clarity (Clear) Urine pH (5.0-8.0) pH Units Ur Specific [place] (1.010-1.025) Urine Protein (Neg-Trace) mg/dL Urine Glucose (UA) (Normal) mg/dL Urine Ketones (Negative) mg/dL Urine Blood (Negative) Urine Nitrite (Negative) Urine Bilirubin (Negative) Urine Urobilinogen (Normal) mg/dL Ur Leukocyte Esterase (Negative) Urine Microscopic RBC (0-3) per hpf Urine Microscopic WBC (0-3) per hpf Ur Squamous Epith Cells (None-Few) per lpf Urine Bacteria (None-Few) per hpf Hyaline Casts (None-Few) per lpf Ur Culture Indicated? (NO) 08/15/17 Range/Units 14:52 WBC (4.3-11.1) K/mcL RBC (3.82-4.97) M/mcL Hgb (11.5-15.4) g/dL Hct (35.3-44.9) % MCV (83.0-100.0) fL MCH (28.0-33.3) pg MCHC (31.6-35.5) g/dL RDW (11.5-14.5) % Plt Count (140-400) K/mcL MPV (9.4-12.4) fL Immature Gran % (0-4) % Seg Neutrophils % % Lymphocytes % % Monocytes % % Eosinophils % % Basophils % % Neutrophils # (1.6-8.9) K/mcL Lymphocytes # (0.6-4.6) K/mcL Monocytes # (0.0-1.3) K/mcL Eosinophils # (0.0-0.6) K/mcL Basophils # (0.0-0.2) K/mcL Sodium (136-145) mEq/L Potassium (3.5-5.1) mEq/L Chloride (98-107) mEq/L Carbon Dioxide (23-29) mEq/L BUN (8-23) mg/dL Creatinine (0.60-1.20) mg/dL Est GFR ( Amer) (> 60) Est GFR (Non-Af Amer) (> 60) BUN/Creatinine Ratio (6-26) Glucose (70-105) mg/dL Calculated Osmolality (280-300) Calcium (8.6-10.3) mg/dL Phosphorus (2.7-4.5) mg/dL Magnesium (1.6-2.6) mg/dL Total Bilirubin (0.3-1.0) mg/dL AST (13-39) Units/L ALT (7-52) Units/L Alkaline Phosphatase (34-104) Units/L Troponin I (< 0.04) ng/mL Serum Total Protein (6.4-8.9) g/dL Albumin (3.5-5.7) g/dL Globulin (2.4-3.5) g/dL Albumin/Globulin Ratio (1.1-2.2) Urine Color Red A (Yellow) Urine Clarity Slightly Cloudy A (Clear) Urine pH 6.0 (5.0-8.0) pH Units Ur Specific [place] 1.018 (1.010-1.025) Urine Protein 100 H (Neg-Trace) mg/dL Urine Glucose (UA) Normal (Normal) mg/dL Urine Ketones Trace H (Negative) mg/dL Urine Blood Small H (Negative) Urine Nitrite Negative (Negative) Urine Bilirubin Small H (Negative) Urine Urobilinogen Normal (Normal) mg/dL Ur Leukocyte Esterase Moderate H (Negative) Urine Microscopic RBC 15-30 H (0-3) per hpf Urine Microscopic WBC TNTC H (0-3) per hpf Ur Squamous Epith Cells Many H (None-Few) per lpf Urine Bacteria Moderate H (None-Few) per hpf Hyaline Casts None Seen (None-Few) per lpf Ur Culture Indicated? NO. (NO)
[2017-08-15] MEDS: 0.9 % Sodium Chloride 1,000 ML IVC SCH (17:29)
[2017-08-15] MEDS ORDERED: MetroNIDAZOLE 500 MG/100 ML 500 MG/100 ML BAG IVPB ONE (18:24)
--- NOTE | 2017-08-15 23:46 | Internal Med History&Physical ---
<Jessica Sharp - Last Filed: 08/16/17 00:05> Date of Encounter: 08/16/17 Time of Encounter: 22:15 Assessment and Plan (1) C. difficile diarrhea Current visit: Yes Status: Acute Diagnosed 08/06/17 at outside hospital, no previous h/o C diff. Failed outpatient treatment with oral flagyl. C diff precautions. Start PO vancomycin and IV flagyl. KUB doesn't show evidence of toxic megacolon--negative for air-filled dilated loops of bowel (2) Dehydration Current visit: Yes Status: Acute d/t profuse diarrhea > 1 week and decreased oral intake. Blood pressure 100/56, no tachycardia. IV fluid replace with NS @ 125mL/hr. Diet order, control nausea with zofran PRN. Hold home dose lactulose for now. (3) Electrolyte depletion Current visit: Yes Status: Acute Likely influenced by decreased oral intake and profuse diarrhea > 1 week. Phosphorous 1.9 and magnesium 1.3 on admission--potassium WNL. Will replete phosphorous and magnesium now. Recheck electrolytes with AM labs and replete PRN. (4) COPD (chronic obstructive pulmonary disease) Current visit: No Status: Chronic No respiratory distress, saturating 100% on 2L NC. Home oxygen use 2L NC continuously. Continue home meds. Duonebs q6h PRN. Qualifiers: COPD type: emphysema Emphysema type: unspecified Qualified Code(s): J43.9 - Emphysema, unspecified (5) Type 2 diabetes mellitus Current visit: Yes Status: Chronic Diabetic diet. Hold home diabetes meds. SSI low dose. Glucose checks TID after meals and HS. Qualifiers: Diabetes mellitus complication status: without complication Diabetes mellitus watermelon inspector insulin use: without watermelon inspector use Qualified Code(s): E11.9 - Type 2 diabetes mellitus without complications (6) UTI (urinary tract infection) Current visit: Yes Status: Acute h/o indwelling reid catheter since March 2018 for neurogenic bladder. Hold off on abx for UTI for now, believe this to be a chronic UTI--no systemic symptoms, afebrile, no white count but continue to monitor WBC and watch for systemic symptoms. Qualifiers: Urinary tract infection type: site unspecified Hematuria presence: with hematuria Qualified Code(s): N39.0 - Urinary tract infection, site not specified; R31.9 - Hematuria, unspecified; R31.9 - Hematuria, unspecified (7) DVT prophylaxis Current visit: Yes Status: Acute SubQ heparin 5,000 units q12h Internal Medicine - H&P: HPI Chief complaint: dehydration, C diff History of present illness: Ms. Whaley is a 76 year old female with PMH of COPD on home oxygen (2L continuous ), DM, CAD, hypothyroidism, ulcerative colitis presented today for c/o dehydration and C diff diarrhea. Pt accompanied by daughter, who supplied majority of hx given pt's hearing problem. Pt diagnosed with C diff 08/06/17 @ outside hospital for c/o profuse, watery, foul-smelling diarrhea and started on outpatient oral flagyl--has taken as directed, didn't take dose today. Pt's daughter concerned because pt has continued to have diarrhea (as above) at least 10x per day, only change is less foul smelling diarrhea since diagnosis and flagyl--daughter states pt has been getting weaker and more dehydrated over last week. Positive h/o decreased appetite x1 week, nausea, lower abd tender, decreased and dark UOP x1 week, tolerating fluids Negative h/o associated fevers, chills, CP, short of breath, vomiting, hematochezia, mental status change Past Med Surg Social Fam HX - Past Medical History Medical history: COPD, diabetes, myocardial infarction, thyroid disease Psychiatric history: depression - Past Surgical History Surgical History: cholecystectomy, COLLIN/BSO - Social History Smoking Status: Former smoker Smokeless Tobacco Status: No Alcohol use: none Drug use: none - Family History Mother Living Status: Hx Family Cardiac Disorders: Yes (htn, cva) Hx Family Respiratory Disorders: Yes (copd emphysema) Hx Family Cancer: Yes (breast ca) Father Living Status: Internal Medicine - H&P: Meds Aspirin Enteric Coated [Aspirin EC] 81 mg PO DAILY 03/12/17 [History] Atorvastatin Calcium [Lipitor] 80 mg PO HS 03/12/17 [History] Baclofen [Lioresal] 20 mg PO BID 03/12/17 [History] Citalopram [CeleXA] 20 mg PO DAILY 03/12/17 [History] Docusate [Colace] 100 mg PO DAILY 03/12/17 [History] Ferrous Sulfate 325 mg PO DAILY 03/12/17 [History] Glimepiride [Amaryl] 2 mg PO QAM 03/12/17 [History] Lactulose 10 gm PO BID 03/12/17 [History] Levothyroxine Sodium [Synthroid] 200 mcg PO QAM 03/12/17 [History] Oxygen 2 l NS AD 03/12/17 [History] Albuterol Sulfate [Ventolin Hfa] 2 puff IH Q4H PRN 08/15/17 [History] Carvedilol 3.125 mg PO BID 08/15/17 [History] Clobetasol Propionate [Clobex] 1 appl TP 3XW 08/15/17 [History] Fluticasone/Salmeterol [Advair Hfa 115-21 Mcg Inhaler] 2 puff IH BID 08/15/17 [ History] Furosemide [Lasix] 40 mg PO DAILY 08/15/17 [History] Gabapentin [Neurontin] 200 mg PO TID 08/15/17 [History] HYDROcodone/Acet 5/325 mg [[place] 5-325 mg] 1 tab PO HS PRN 08/15/17 [History] Linagliptin [Tradjenta] 5 mg PO DAILY 08/15/17 [History] Metformin HCl [Metformin HCl ER] 1,000 mg PO QPM 08/15/17 [History] Nystatin POWDER [Nystop] 1 appl TP BID PRN 08/15/17 [History] Ondansetron HCl [Zofran] 4 mg PO Q4-6H PRN 08/15/17 [History] Oxybutynin Chloride [Ditropan Xl] 10 mg PO DAILY 08/15/17 [History] Pantoprazole Sodium [Protonix] 40 mg PO DAILY 08/15/17 [History] Potassium Chloride [K-Tab ER] 20 meq PO BID 08/15/17 [History] Ticagrelor [Brilinta] 90 mg PO BID 08/15/17 [History] Triamcinolone Acet 0.1% CRM [Kenalog] 1 appl TP BID 08/15/17 [History] Vitamins A and D [Vitamin A and D] 1 each PO DAILY 08/15/17 [History] metroNIDAZOLE [Flagyl] 500 mg PO TID 08/15/17 [History] 3 Allergy/AdvReac Type Severity Reaction Status Date / Time levofloxacin [From Levaquin] Allergy Hives Verified 03/12/17 16:35 Penicillins Allergy Hives Verified 03/12/17 16:35 morphine AdvReac Itching Verified 03/14/17 07:29 All Systems PM: A 10-system review of systems was performed and is negative for pertinent findings except as documented above in the HPI. - Constitutional Vitals: Temp Pulse Resp BP Pulse Ox 98.3 F 72 16 100/56 100 08/15/17 20:33 08/15/17 20:33 08/15/17 20:33 08/15/17 20:33 08/15/17 20:33 General appearance: Present: A&O X 2 (not oriented to date/time), pleasant, no acute distress - Head Head exam: Present: normal inspection - Eye Eye exam: Present: EOMI, PERRL, sclera anicteric - ENT ENT exam: Present: mucous membranes dry - Respiratory Respiratory exam: Present: CTAB. Absent: respiratory distress - Cardiovascular Cardiovascular exam: Present: distant heart sounds, RRR, +S1, +S2. Absent: diastolic murmur, systolic murmur - GI/Abdominal GI/Abdominal exam: Present: soft, tenderness (LLQ and suprapubic), no peritoneal signs. Absent: distended, firm, guarding - Additional comments: indwelling reid - Extremities Exam Extremities exam: Present: pedal edema (mild, non-pitting), warm. Absent: tenderness - Neurological Exam Neurological exam: Present: alert, no focal deficits. Absent: altered, speech deficit Additional comments: oriented to person and place - Skin Skin exam: Present: erythema (LE), intact, warm Internal Med - H&P Results - Labs CBC & Chem 7: 08/15/17 14:50 08/15/17 14:50 <Mary Juarez - Last Filed: 08/16/17 00:42> Date of Encounter: 08/16/17 Internal Medicine - H&P: HPI History of present illness: Ms. Whaley is a 76 year old female All Systems PM: A 10-system review of systems was performed and is negative for pertinent findings except as documented above in the HPI. - Constitutional Vitals: Temp Pulse Resp BP Pulse Ox 98.3 F 72 17 100/56 100 08/15/17 20:33 08/15/17 20:33 08/15/17 23:48 08/15/17 20:33 08/15/17 23:48 Internal Med - H&P Results - Labs CBC & Chem 7: 08/15/17 14:50 08/15/17 14:50 - Attending Attestation I have seen and examined this pt independently. I have discussed with resident physician Dr Sharp regarding the management plan. Agree with documentation. Pt use BiPAP during night at home for COPD, will cont.
[2017-08-16] MEDS ORDERED: Ondansetron ODT 4 MG TAB.RAPDIS PO PRN (00:01)
[2017-08-16] MEDS ORDERED: Nystatin POWDER 30 GM BOTTLE TP PRN (00:01)
[2017-08-16] MEDS ORDERED: *HR* HYDROcodone/Acet 5/325 mg TABLET PO PRN (00:01)
[2017-08-16] MEDS ORDERED: *HR* Dextrose 50 % in Water (Syg) 50 ML SYRINGE IVP PRN (00:09)
[2017-08-16] MEDS ORDERED: Dextrose Gel 15 GM/37.5 ML TUBE PO PRN ×2 (00:09)
[2017-08-16] MEDS ORDERED: D5% in Water 1,000 ML IVC PRN (00:09)
[2017-08-16] MEDS: *HR* Heparin 5,000 UNIT/ML VIAL SQ SCH ×2 (05:43→17:38)
[2017-08-16 05:57] LABS: Basophils % 0.4 %; Eosinophils # 0.4 K/mcL (0.0-0.6); Eosinophils % 5.3 %; Hematocrit 30.6 % (35.3-44.9); Hemoglobin 9.9 g/dL (11.5-15.4); Immature Granulocytes % 1.2 % (0-4); Lymphocytes # 1.5 K/mcL (0.6-4.6); Lymphocytes % 19.1 %; Mean Corpuscular HGB Conc 32.4 g/dL (31.6-35.5); Mean Corpuscular Hemoglobin 26.6 pg (28.0-33.3); Mean Corpuscular Volume 82.3 fL (83.0-100.0); Mean Platelet Volume 8.7 fL (9.4-12.4); Monocytes # 1.2 K/mcL (0.0-1.3); Monocytes % 14.9 %; Neutrophils # 4.6 K/mcL (1.6-8.9); Nucleated Red Blood Cells 0.3 /100 WBC (0); Platelet Count 327 K/mcL (140-400); Red Blood Count 3.72 M/mcL (3.82-4.97); Segmented Neutrophils % 59.1 %
[2017-08-16 06:26] LABS: Alanine Aminotransferase 15 Units/L (7-52); Albumin 2.5 g/dL (3.5-5.7); Albumin/Globulin Ratio 0.8 (1.1-2.2); Alkaline Phosphatase 57 Units/L (34-104); Aspartate Amino Transferase 22 Units/L (13-39); BUN/Creatinine Ratio 14 (6-26); Bilirubin,Total 0.4 mg/dL (0.3-1.0); Blood Urea Nitrogen 11 mg/dL (8-23); Calcium 7.8 mg/dL (8.6-10.3); Carbon Dioxide 18 mEq/L (23-29); Chloride 108 mEq/L (98-107); Globulin 3.1 g/dL (2.4-3.5); Glucose 106 mg/dL (70-105); Osmolality,Calculated 280 (280-300); Potassium 3.4 mEq/L (3.5-5.1); Sodium 135 mEq/L (136-145); Total Protein 5.6 g/dL (6.4-8.9); eGFR For African Americans > 60 (> 60); eGFR For Non-African Americans > 60 (> 60)
[2017-08-16] MEDS: VITAMIN A AND D PO SCH (07:53)
[2017-08-16] MEDS: Budesonide/Formoterol 80/4.5 MDI IH SCH ×2 (07:54→20:09)
[2017-08-16] MEDS: Insulin LISPRO 300 UNITS/3 ML VIAL SQ SCH ×4 (08:05→21:07)
[2017-08-16] MEDS: MetroNIDAZOLE 500 MG/100 ML 500 MG/100 ML BAG IVPB SCH ×3 (08:05→23:06)
[2017-08-16] MEDS: Baclofen 10 MG TABLET PO SCH ×2 (08:06→20:26)
[2017-08-16] MEDS: *HR* Ticagrelor 90 MG TABLET PO SCH ×2 (08:06→20:25)
[2017-08-16] MEDS: Gabapentin 100 MG CAPSULE PO SCH ×3 (08:06→20:26)
[2017-08-16] MEDS: Aspirin Enteric Coated 81 MG Tablet PO SCH (08:06)
[2017-08-16] MEDS: Lactobacillus 1 EACH CAP.SPRINK PO SCH (08:06)
[2017-08-16] MEDS: Vancomycin Oral Soln 250 MG/5 ML UDC PO SCH ×4 (08:13→20:25)
[2017-08-16] MEDS: 0.9 % Sodium Chloride 1,000 ML IVC SCH (13:12)
--- NOTE | 2017-08-16 18:49 | Internal Med Progress Note ---
Date of Encounter: 08/17/17 Time of Encounter: 11:00 - Assessment and plan (1) C. difficile diarrhea Current Visit: Yes Status: Acute Assessment and plan: Originally diagnosed 08/06/17 at outside facility no previous history of C. difficile. She failed outpatient treatment of oral Flagyl. Patient has been placed on seizure precautions. Started on by mouth vancomycin as well as IV Flagyl. 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 We will continue to monitor no antibiotics at this time Qualifiers: Urinary tract infection type: site unspecified Hematuria presence: with hematuria Qualified Code(s): N39.0 - Urinary tract infection, site not specified; R31.9 - Hematuria, unspecified; R31.9 - Hematuria, unspecified (5) Type 2 diabetes mellitus Current Visit: Yes Status: Chronic Assessment and plan: Diabetic diet say scale insulin and Accu-Cheks before meals at bedtime Qualifiers: Diabetes mellitus complication status: without complication Diabetes mellitus marine oil terminal superintendent insulin use: without marine oil terminal superintendent use Qualified Code(s): E11.9 - Type 2 diabetes mellitus without complications (6) DVT prophylaxis Current Visit: Yes Status: Acute Assessment and plan: Subcutaneous heparin every 12 hours - Subjective Interval history: Patient complains of some abdominal pain and continues to have loose stools. She has had approximately 3 loose stools this morning. Daughter does some concerns about breakdown to her buttocks. Advised we will consult wound care for her. - Constitutional Vitals: Temp Pulse Resp BP Pulse Ox 98.6 F 75 15 115/65 98 08/16/17 16:20 08/16/17 16:20 08/16/17 16:20 08/16/17 16:20 08/16/17 16:20 General appearance: Present: A&O X 2 (not oriented to date/time), pleasant, no acute distress - Head Head exam: Present: atraumatic, normocephalic - Eye Eye exam: Present: PERRL, conjuntiva pink, sclera anicteric Pupils: Present: PERRL - Neck Neck exam general surgery: Present: supple, trachea midline. Absent: lymphadenopathy - Respiratory Respiratory exam: Present: CTAB. Absent: accessory muscle use, rales, rhonchi, wheezes - Cardiovascular Cardiovascular exam: Present: RRR, +S1, +S2. Absent: diastolic murmur, gallop, rubs, systolic murmur - GI/Abdominal GI/Abdominal exam: Present: normal bowel sounds, soft, no peritoneal signs. Absent: distended, tenderness - Extremities Exam Extremities exam: Present: warm, radial pulses palpable and symmetrical. Absent : calf tenderness, cyanotic, pedal edema - Neurological Exam Neurological exam: Present: CN II-XII intact, oriented X3, no focal deficits. Absent: pronater drift, facial droop, speech deficit - Skin Skin exam: Present: dry, intact Internal Medicine: Result - Labs CBC & Chem 7: 08/17/17 02:17 18 02:17 Labs: Short CBC 08/16/17 Range/Units 05:13 WBC 7.7 (4.3-11.1) K/mcL Hgb 9.9 L (11.5-15.4) g/dL Hct 30.6 L (35.3-44.9) % Plt Count 327 (140-400) K/mcL Neutrophils # 4.6 (1.6-8.9) K/mcL BMP 08/16/17 05:13 Sodium 135 L Potassium 3.4 L Chloride 108 H Carbon Dioxide 18 L BUN 11 Creatinine 0.76 Glucose 106 H Calcium 7.8 L Liver Function 08/16/17 Range/Units 05:13 Total Bilirubin 0.4 (0.3-1.0) mg/dL AST 22 (13-39) Units/L ALT 15 (7-52) Units/L Alkaline Phosphatase 57 (34-104) Units/L Albumin 2.5 L (3.5-5.7) g/dL Consult Discharge Plan - Plan Referrals: Hali Correia, XAVI [Primary Care Provider] -
[2017-08-17 02:55] LABS: Basophils % 0.7 %; Eosinophils # 0.4 K/mcL (0.0-0.6); Eosinophils % 6.9 %; Hematocrit 31.1 % (35.3-44.9); Hemoglobin 10.1 g/dL (11.5-15.4); Immature Granulocytes % 0.8 % (0-4); Lymphocytes # 1.5 K/mcL (0.6-4.6); Lymphocytes % 25.2 %; Mean Corpuscular HGB Conc 32.5 g/dL (31.6-35.5); Mean Corpuscular Hemoglobin 26.8 pg (28.0-33.3); Mean Corpuscular Volume 82.5 fL (83.0-100.0); Mean Platelet Volume 8.7 fL (9.4-12.4); Monocytes # 0.8 K/mcL (0.0-1.3); Monocytes % 13.5 %; Neutrophils # 3.1 K/mcL (1.6-8.9); Platelet Count 358 K/mcL (140-400); Red Blood Count 3.77 M/mcL (3.82-4.97); Red Cell Distribution Width 15.5 % (11.5-14.5); Segmented Neutrophils % 52.9 %
[2017-08-17 03:20] LABS: BUN/Creatinine Ratio 10 (6-26); Blood Urea Nitrogen 7 mg/dL (8-23); Calcium 7.7 mg/dL (8.6-10.3); Carbon Dioxide 23 mEq/L (23-29); Chloride 109 mEq/L (98-107); Glucose 141 mg/dL (70-105); Osmolality,Calculated 280 (280-300); Potassium 3.4 mEq/L (3.5-5.1); Sodium 135 mEq/L (136-145); eGFR For African Americans > 60 (> 60); eGFR For Non-African Americans > 60 (> 60)
[2017-08-17 04:52] LABS: Magnesium 1.9 mg/dL (1.6-2.6); Phosphorous 3.4 mg/dL (2.7-4.5)
[2017-08-17] MEDS: *HR* Heparin 5,000 UNIT/ML VIAL SQ SCH ×2 (06:15→17:50)
[2017-08-17] MEDS: 0.9 % Sodium Chloride 1,000 ML IVC SCH (06:33)
[2017-08-17] MEDS: MetroNIDAZOLE 500 MG/100 ML 500 MG/100 ML BAG IVPB SCH ×2 (09:47→17:51)
[2017-08-17] MEDS: Insulin LISPRO 300 UNITS/3 ML VIAL SQ SCH ×4 (09:47→21:49)
[2017-08-17] MEDS: Lactobacillus 1 EACH CAP.SPRINK PO SCH (09:48)
[2017-08-17] MEDS: Baclofen 10 MG TABLET PO SCH ×2 (09:48→20:57)
[2017-08-17] MEDS: Gabapentin 100 MG CAPSULE PO SCH ×3 (09:48→21:00)
[2017-08-17] MEDS: *HR* Ticagrelor 90 MG TABLET PO SCH ×2 (09:48→20:57)
[2017-08-17] MEDS: Aspirin Enteric Coated 81 MG Tablet PO SCH (09:48)
[2017-08-17] MEDS: VITAMIN A AND D PO SCH (09:49)
[2017-08-17] MEDS: Vancomycin Oral Soln 250 MG/5 ML UDC PO SCH ×4 (09:49→20:57)
--- NOTE | 2017-08-17 09:51 | Internal Med Progress Note ---
Date of Encounter: 08/17/17 Time of Encounter: 09:48 - Assessment and plan (1) C. difficile diarrhea Current Visit: Yes Status: Acute Assessment and plan: Originally diagnosed 08/06/17 at outside facility no previous history of C. difficile. She failed outpatient treatment of oral Flagyl. Patient has been placed on C diff precautions. Stools are slowing, tolerating diet no abd pain. 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 We will continue to monitor no antibiotics at this time Qualifiers: Urinary tract infection type: site unspecified Hematuria presence: with hematuria Qualified Code(s): N39.0 - Urinary tract infection, site not specified; R31.9 - Hematuria, unspecified; R31.9 - Hematuria, unspecified (5) Type 2 diabetes mellitus Current Visit: Yes Status: Chronic Assessment and plan: Diabetic diet sliding scale insulin and Accu-Cheks before meals at bedtime Qualifiers: Diabetes mellitus complication status: without complication Diabetes mellitus penitentiary insulin use: without manager hi use Qualified Code(s): E11.9 - Type 2 diabetes mellitus without complications (6) DVT prophylaxis Current Visit: Yes Status: Acute Assessment and plan: Subcutaneous heparin every 12 hours - Time Spent With Patient less than 15 minutes - Subjective Interval history: Abdominal pain improved. Tolerating diet. Stool seems to be slowing down. States that she feels better. . - Constitutional Vitals: Temp Pulse Resp BP Pulse Ox 97.8 F 82 19 82/34 96 08/17/17 08:15 08/17/17 08:15 08/17/17 08:15 08/17/17 08:15 08/17/17 08:15 General appearance: Present: A&O X 2 (not oriented to date/time), pleasant, no acute distress - Head Head exam: Present: atraumatic, normocephalic - Eye Eye exam: Present: PERRL, conjuntiva pink, sclera anicteric Pupils: Present: PERRL - Neck Neck exam general surgery: Present: supple, trachea midline. Absent: lymphadenopathy - Respiratory Respiratory exam: Present: CTAB. Absent: accessory muscle use, rales, rhonchi, wheezes - Cardiovascular Cardiovascular exam: Present: RRR, +S1, +S2. Absent: diastolic murmur, gallop, rubs, systolic murmur - GI/Abdominal GI/Abdominal exam: Present: normal bowel sounds, soft, no peritoneal signs. Absent: distended, tenderness - Extremities Exam Extremities exam: Present: warm, radial pulses palpable and symmetrical. Absent : calf tenderness, cyanotic, pedal edema - Neurological Exam Neurological exam: Present: CN II-XII intact, oriented X3, no focal deficits. Absent: pronater drift, facial droop, speech deficit - Skin Skin exam: Present: dry, intact Internal Medicine: Result - Labs CBC & Chem 7: 08/17/17 02:17 08/17/17 02:17 Labs: Short CBC 08/17/17 Range/Units 02:17 WBC 5.9 (4.3-11.1) K/mcL Hgb 10.1 L (11.5-15.4) g/dL Hct 31.1 L (35.3-44.9) % Plt Count 358 (140-400) K/mcL Neutrophils # 3.1 (1.6-8.9) K/mcL BMP 08/17/17 02:17 Sodium 135 L Potassium 3.4 L Chloride 109 H Carbon Dioxide 23 BUN 7 L Creatinine 0.67 Glucose 141 H Calcium 7.7 L Consult Discharge Plan - Plan Referrals: Hali Correia, [employer] PROJECTIONIST [Primary Care Provider] -
[2017-08-17] MEDS: Budesonide/Formoterol 80/4.5 MDI IH SCH ×2 (10:53→21:24)
[2017-08-18] MEDS: MetroNIDAZOLE 500 MG/100 ML 500 MG/100 ML BAG IVPB SCH ×4 (00:48→23:59)
[2017-08-18 04:46] LABS: Basophils % 0.5 %; Eosinophils % 6.6 %; Hemoglobin 9.7 g/dL (11.5-15.4); Immature Granulocytes % 1.1 % (0-4); Mean Corpuscular HGB Conc 32.3 g/dL (31.6-35.5); Mean Corpuscular Hemoglobin 26.9 pg (28.0-33.3); Mean Corpuscular Volume 83.1 fL (83.0-100.0); Mean Platelet Volume 8.7 fL (9.4-12.4); Monocytes % 13.6 %; Platelet Count 332 K/mcL (140-400); Red Blood Count 3.61 M/mcL (3.82-4.97); Red Cell Distribution Width 15.9 % (11.5-14.5); Segmented Neutrophils % 52.2 %
[2017-08-18 04:47] LABS: Eosinophils # 0.4 K/mcL (0.0-0.6); Lymphocytes # 1.7 K/mcL (0.6-4.6); Monocytes # 0.9 K/mcL (0.0-1.3); Neutrophils # 3.4 K/mcL (1.6-8.9)
[2017-08-18 05:02] LABS: BUN/Creatinine Ratio 7 (6-26); Blood Urea Nitrogen 5 mg/dL (8-23); Calcium 7.8 mg/dL (8.6-10.3); Carbon Dioxide 20 mEq/L (23-29); Chloride 113 mEq/L (98-107); Glucose 187 mg/dL (70-105); Osmolality,Calculated 288 (280-300); Potassium 3.9 mEq/L (3.5-5.1); Sodium 138 mEq/L (136-145); eGFR For African Americans > 60 (> 60); eGFR For Non-African Americans > 60 (> 60)
[2017-08-18] MEDS: *HR* Heparin 5,000 UNIT/ML VIAL SQ SCH ×2 (05:41→17:04)
[2017-08-18] MEDS: Insulin LISPRO 300 UNITS/3 ML VIAL SQ SCH ×4 (07:38→21:23)
[2017-08-18] MEDS: Gabapentin 100 MG CAPSULE PO SCH ×3 (07:44→21:25)
[2017-08-18] MEDS: *HR* Ticagrelor 90 MG TABLET PO SCH ×2 (07:45→21:25)
[2017-08-18] MEDS: Baclofen 10 MG TABLET PO SCH ×2 (07:45→21:26)
[2017-08-18] MEDS: Aspirin Enteric Coated 81 MG Tablet PO SCH (07:45)
[2017-08-18] MEDS: Lactobacillus 1 EACH CAP.SPRINK PO SCH (07:47)
[2017-08-18] MEDS: Vancomycin Oral Soln 250 MG/5 ML UDC PO SCH ×4 (07:53→21:25)
[2017-08-18] MEDS: Budesonide/Formoterol 80/4.5 MDI IH SCH ×2 (08:27→20:09)
[2017-08-18] MEDS: VITAMIN A AND D PO SCH (09:14)
--- NOTE | 2017-08-18 16:06 | Internal Med Progress Note ---
Date of Encounter: 08/18/17 Time of Encounter: 09:00 - Assessment and plan (1) C. difficile diarrhea Current Visit: Yes Status: Acute Assessment and plan: Originally diagnosed 08/06/17 at outside facility no previous history of C. difficile. She failed outpatient treatment of oral Flagyl. Patient has been placed on C diff precautions. Stools are slowing, tolerating diet no abd pain. 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 We will continue to monitor no antibiotics at this time Qualifiers: Urinary tract infection type: site unspecified Hematuria presence: with hematuria Qualified Code(s): N39.0 - Urinary tract infection, site not specified; R31.9 - Hematuria, unspecified; R31.9 - Hematuria, unspecified (5) Type 2 diabetes mellitus Current Visit: Yes Status: Chronic Assessment and plan: Diabetic diet sliding scale insulin and Accu-Cheks before meals at bedtime Qualifiers: Diabetes mellitus complication status: without complication Diabetes mellitus jail insulin use: without jail use Qualified Code(s): E11.9 - Type 2 diabetes mellitus without complications (6) DVT prophylaxis Current Visit: Yes Status: Acute Assessment and plan: Subcutaneous heparin every 12 hours - Subjective Interval history: Patient seen and examined at bedside. Presently denies any abdominal pains tolerating a regular diet. Stools have slowed considerably. Anticipate will be discharged in the a.m hx past medical history of COPD on home oxygen 2 L diabetes coronary artery disease hypothyroidism also colitis patient recently presented to the ER complaining of dehydration and C. difficile diarrhea. Patient has been diagnosed as outlined facility on 08/06/17 of C. difficile was initiated on oral Flagyl. She had been taking medication as directed however symptoms continued. She was initiated on IV Flagyl and Cipro given IV fluids the amount of stools have decreased over the past 2 days she has been tolerating diet anticipate that she will be discharged tomorrow if no changes - Constitutional Vitals: Temp Pulse Resp BP Pulse Ox 97.5 F L 78 16 110/67 99 08/18/17 11:21 08/18/17 11:21 08/18/17 11:21 08/18/17 11:21 08/18/17 11:21 General appearance: Present: A&O X 2 (not oriented to date/time), pleasant, no acute distress - Head Head exam: Present: atraumatic, normocephalic - Eye Eye exam: Present: PERRL, conjuntiva pink, sclera anicteric Pupils: Present: PERRL - Neck Neck exam general surgery: Present: supple, trachea midline. Absent: lymphadenopathy - Respiratory Respiratory exam: Present: CTAB. Absent: accessory muscle use, rales, rhonchi, wheezes - Cardiovascular Cardiovascular exam: Present: RRR, +S1, +S2. Absent: diastolic murmur, gallop, rubs, systolic murmur - GI/Abdominal GI/Abdominal exam: Present: normal bowel sounds, soft, no peritoneal signs. Absent: distended, tenderness - Extremities Exam Extremities exam: Present: warm, radial pulses palpable and symmetrical. Absent : calf tenderness, cyanotic, pedal edema - Neurological Exam Neurological exam: Present: CN II-XII intact, oriented X3, no focal deficits. Absent: pronater drift, facial droop, speech deficit - Skin Skin exam: Present: dry, intact Internal Medicine: Result - Labs CBC & Chem 7: 08/18/17 03:17 08/18/17 03:17 Labs: Short CBC 08/18/17 Range/Units 03:17 WBC 6.6 (4.3-11.1) K/mcL Hgb 9.7 L (11.5-15.4) g/dL Hct 30.0 L (35.3-44.9) % Plt Count 332 (140-400) K/mcL Neutrophils # 3.4 (1.6-8.9) K/mcL BMP 08/18/17 03:17 Sodium 138 Potassium 3.9 Chloride 113 H Carbon Dioxide 20 L BUN 5 L Creatinine 0.73 Glucose 187 H Calcium 7.8 L Consult Discharge Plan - Plan Referrals: Hali Correia, LCSW [Primary Care Provider] -
[2017-08-19 05:21] LABS: Basophils # 0.1 K/mcL (0.0-0.2); Basophils % 0.6 %; Eosinophils # 0.6 K/mcL (0.0-0.6); Hematocrit 32.1 % (35.3-44.9); Immature Granulocytes % 0.8 % (0-4); Lymphocytes % 25.5 %; Mean Corpuscular HGB Conc 31.2 g/dL (31.6-35.5); Mean Corpuscular Hemoglobin 26.6 pg (28.0-33.3); Mean Corpuscular Volume 85.4 fL (83.0-100.0); Mean Platelet Volume 8.5 fL (9.4-12.4); Monocytes % 13.3 %; Neutrophils # 4.1 K/mcL (1.6-8.9); Platelet Count 347 K/mcL (140-400); Red Blood Count 3.76 M/mcL (3.82-4.97); Red Cell Distribution Width 16.4 % (11.5-14.5); Segmented Neutrophils % 52.8 %
[2017-08-19] MEDS: *HR* Heparin 5,000 UNIT/ML VIAL SQ SCH (05:51)
[2017-08-19 05:57] LABS: BUN/Creatinine Ratio 9 (6-26); Blood Urea Nitrogen 6 mg/dL (8-23); Calcium 8.2 mg/dL (8.6-10.3); Carbon Dioxide 21 mEq/L (23-29); Chloride 113 mEq/L (98-107); Glucose 153 mg/dL (70-105); Osmolality,Calculated 285 (280-300); Potassium 4.4 mEq/L (3.5-5.1); Sodium 137 mEq/L (136-145); eGFR For African Americans > 60 (> 60); eGFR For Non-African Americans > 60 (> 60)
[2017-08-19 07:26] VITALS: BP 105/66
[2017-08-19] MEDS: Budesonide/Formoterol 80/4.5 MDI IH SCH (08:23)
[2017-08-19] MEDS: Insulin LISPRO 300 UNITS/3 ML VIAL SQ SCH (09:00)
[2017-08-19] MEDS: Gabapentin 100 MG CAPSULE PO SCH (09:01)
[2017-08-19] MEDS: MetroNIDAZOLE 500 MG/100 ML 500 MG/100 ML BAG IVPB SCH (09:01)
[2017-08-19] MEDS: *HR* Ticagrelor 90 MG TABLET PO SCH (09:01)
[2017-08-19] MEDS: Lactobacillus 1 EACH CAP.SPRINK PO SCH (09:01)
[2017-08-19] MEDS: VITAMIN A AND D PO SCH (09:02)
[2017-08-19] MEDS: Aspirin Enteric Coated 81 MG Tablet PO SCH (09:02)
[2017-08-19] MEDS: Vancomycin Oral Soln 250 MG/5 ML UDC PO SCH (09:02)
[2017-08-19] MEDS: Baclofen 10 MG TABLET PO SCH (09:03)
--- NOTE | 2017-08-19 10:15 | Discharge Summary ---
Orders not resulted at time of discharge: Pending orders 08/16/17 18:44 Consult to Wound Care [CONS] Routine 08/18/17 09:18 Consult to Physical Therapy [CONS] Routine Date of Encounter: 08/19/17 Time of Encounter: 10:13 - Discharge Diagnosis (1) C. difficile diarrhea Priority: Primary Status: Acute Comments: completed 3 rounds of ATB since 05/2017 for UTI. Diagnosis at outside hospital was C. difficile on 08/08/17; treated with oral Flagyl with no improvement in abdominal pain and loose stool. 08/16/17 C. difficile negative however he did remained a concern given her persistent/severe loose stool. Stools decreased from 10/day to 2-3/day. Cont Flagyl/Vanco at discharge (to complete a total course of 14 days). Cont probiotic (2) Neurogenic bladder Priority: Secondary Status: Chronic Comments: per hx. Has chronic reid. Follows with Urology. Urine culture with Escherichia coli; suspect colonization as she is asymptomatic, afebrile, no elevated WBC. Furthermore she has been treated with 3 rounds of ATB in the last 2 months. Hold on ATB at this time. Follow-up with urology as previously planned. (3) Type 2 diabetes mellitus Priority: Secondary Status: Chronic Comments: per hx. Blood sugars variable but acceptable. Continue home diabetes medication regimen. Qualifiers: Diabetes mellitus complication status: without complication Diabetes mellitus intermediate frame tender insulin use: without group home use Qualified Code(s): E11.9 - Type 2 diabetes mellitus without complications (4) COPD (chronic obstructive pulmonary disease) Priority: Secondary Status: Chronic Comments: Per history. With chronic respiratory failure; on home O2 at 2 L/m. No evidence of exacerbation. Cont home inhalers. Qualifiers: COPD type: emphysema Emphysema type: unspecified Qualified Code(s): J43.9 - Emphysema, unspecified (5) CAD (coronary artery disease) Priority: Secondary Status: Acute Comments: per hx. Recent successful PCI with 5 stents placed. Asymptomatic. Denied chest pain. Continue home ASA, Brilinta, statin, BB. Follow up with primary java jsf developer outpatient. Qualifiers: Coronary Disease-Associated Artery/Lesion type: [place] artery [place] vs. transplanted heart: [place] heart Associated angina: without angina Qualified Code(s): I25.10 - Atherosclerotic heart disease of [place] coronary artery without angina pectoris Hospital course: Ms. Whaley is a 76 year old female with past medical history CAD, diabetes and neurogenic bladder with chronic Reid presented to [facility] on 08[facility]16[facility]17 with complaints of abdominal pain and loose stool. She was recently diagnosed with C. difficile and was being treated with Flagyl. C. difficile stool culture negative while inpatient however remain concern for C. difficile given her recent Hgb exposure and persistent/severe loose stool. Symptoms improved with oral vancomycin and Flagyl. She was discharged home in stable condition. See assessment and plan for further details. - Time Spent with Patient Total time spent providing and/or coordinating discharge services: Less than 30 minutes - Discharge Medications Prescriptions: metroNIDAZOLE [Flagyl] 500 mg PO TID #30 tablet Vancomycin Oral Soln [Vancocin] 250 mg PO QID #40 [facility] [place] Medications: Aspirin Enteric Coated [Aspirin EC] 81 mg PO DAILY 03/12/17 [History] Atorvastatin Calcium [Lipitor] 80 mg PO HS 03/12/17 [History] Baclofen [Lioresal] 20 mg PO BID 03/12/17 [History] Citalopram [CeleXA] 20 mg PO DAILY 03/12/17 [History] Docusate [Colace] 100 mg PO DAILY 03/12/17 [History] Ferrous Sulfate 325 mg PO DAILY 03/12/17 [History] Glimepiride [Amaryl] 2 mg PO QAM 03/12/17 [History] Lactulose 10 gm PO BID 03/12/17 [History] Levothyroxine Sodium [Synthroid] 200 mcg PO QAM 03/12/17 [History] Oxygen 2 l NS AD 03/12/17 [History] Albuterol Sulfate [Ventolin Hfa] 2 puff IH Q4H PRN 08/15/17 [History] Carvedilol 3.125 mg PO BID 08/15/17 [History] Clobetasol Propionate [Clobex] 1 appl TP 3XW 08/15/17 [History] Fluticasone/Salmeterol [Advair Hfa 115-21 Mcg Inhaler] 2 puff IH BID 08/15/17 [ History] Furosemide [Lasix] 40 mg PO DAILY 08/15/17 [History] Gabapentin [Neurontin] 200 mg PO TID 08/15/17 [History] HYDROcodone/Acet 5/325 mg [[place] 5-325 mg] 1 tab PO HS PRN 08/15/17 [History] Linagliptin [Tradjenta] 5 mg PO DAILY 08/15/17 [History] Metformin HCl [Metformin HCl ER] 1,000 mg PO QPM 08/15/17 [History] Nystatin POWDER [Nystop] 1 appl TP BID PRN 08/15/17 [History] Ondansetron HCl [Zofran] 4 mg PO Q4-6H PRN 08/15/17 [History] Oxybutynin Chloride [Ditropan Xl] 10 mg PO DAILY 08/15/17 [History] Pantoprazole Sodium [Protonix] 40 mg PO DAILY 08/15/17 [History] Potassium Chloride [K-Tab ER] 20 meq PO BID 08/15/17 [History] Ticagrelor [Brilinta] 90 mg PO BID 08/15/17 [History] Triamcinolone Acet 0.1% CRM [Kenalog] 1 appl TP BID 08/15/17 [History] Vitamins A and D [Vitamin A and D] 1 each PO DAILY 08/15/17 [History] Vancomycin Oral Soln [Vancocin] 250 mg PO QID #40 [facility] 08/19/17 [Rx] metroNIDAZOLE [Flagyl] 500 mg PO TID #30 tablet 08/19/17 [Rx] Allergies/Adverse Reactions: 3 Allergy/AdvReac Type Severity Reaction Status Date / Time levofloxacin [From Levaquin] Allergy Hives Verified 03/12/17 16:35 Penicillins Allergy Hives Verified 03/12/17 16:35 morphine AdvReac Itching Verified 03/14/17 07:29 Date of admission: 08/15/17 23:59 Primary care physician: Hali Correia CNP Consults: 08/16/17 18:44 Consult to Wound Care [CONS] Routine Reason for Consult: break down on bottom Time Notified: 18:45 Call Completed: No 08/18/17 09:18 Consult to Physical Therapy [CONS] Routine Comment: Evaluate, develop and implement POC Reason for Consult: deconditioning Discharging clinician: Linda Gardnuo Anticipated date of discharge: 08/19/17 - Constitutional Vitals: Temp Pulse Resp BP Pulse Ox 97.6 F 64 18 105/66 96 08/19/17 07:24 02/20/18 07:24 08/19/17 08:24 08/19/17 07:24 08/19/17 08:24 General appearance: Present: A&O X 2 (not oriented to date/time), pleasant, no acute distress - Head Head exam: Present: atraumatic, normocephalic - Eye Eye exam: Present: PERRL, conjuntiva pink, sclera anicteric Pupils: Present: PERRL - Neck Neck exam general surgery: Present: supple, trachea midline. Absent: lymphadenopathy - Respiratory Respiratory exam: Present: CTAB. Absent: accessory muscle use, rales, rhonchi, wheezes - Cardiovascular Cardiovascular exam: Present: RRR, +S1, +S2. Absent: diastolic murmur, gallop, rubs, systolic murmur - GI/Abdominal GI/Abdominal exam: Present: normal bowel sounds, soft, no peritoneal signs. Absent: distended, tenderness - Extremities Exam Extremities exam: Present: warm, radial pulses palpable and symmetrical. Absent : calf tenderness, cyanotic, pedal edema - Neurological Exam Neurological exam: Present: CN II-XII intact, oriented X3, no focal deficits. Absent: pronater drift, facial droop, speech deficit - Skin Skin exam: Present: dry, intact - Patient Status Disposition: Home Health Service Condition: Good Functional capacity at discharge: uses cane/walker Overall status at discharge: patient is progressing back to baseline - Discharge Instructions Instructions: Clostridium Difficile Infection (DC), Metronidazole (By mouth), Vancomycin (By mouth) Follow Up With: Hali Correia HOUSING COORDINATOR [Primary Care Provider] - - Diet and Activity Activity: increase activity as tolerated Diet: diabetic diet
--- NOTE | 2017-08-19 10:56 | Physician Discharge Referral ---
Home Health/Hosp Referral Info Transfer to: Home Health Attending Provider: Linda Garduno CNP Provider in Charge Post Discharge: PCP - Diagnosis (1) C. difficile diarrhea Status: Acute (2) Neurogenic bladder Status: Chronic (3) Type 2 diabetes mellitus Status: Chronic (4) COPD (chronic obstructive pulmonary disease) Status: Chronic (5) CAD (coronary artery disease) Status: Acute - Respiratory Orders Oxygen / L per min (2) Smoking Cessation: Smoking cessation has been advised. For more information, call the [employer] Quit Line at [phone]-NOW. - Diet/Nutrition Diet/Nutrition Orders: Cardiac, No Concentrated Sweets - Activity Activity Orders: Walker - Services Needed Following services are medically necessary services: Nursing, Home Health Aide, Physical Therapy, Occupational Therapy - Transfer Medications Prescriptions: metroNIDAZOLE [Flagyl] 500 mg PO TID #30 tablet Vancomycin Oral Soln [Vancocin] 250 mg PO QID #40 ud[facility] Home Medications: Aspirin Enteric Coated [Aspirin EC] 81 mg PO DAILY 03/12/17 [History] Atorvastatin Calcium [Lipitor] 80 mg PO HS 03/12/17 [History] Baclofen [Lioresal] 20 mg PO BID 03/12/17 [History] Citalopram [CeleXA] 20 mg PO DAILY 03/12/17 [History] Docusate [Colace] 100 mg PO DAILY 03/12/17 [History] Ferrous Sulfate 325 mg PO DAILY 03/12/17 [History] Glimepiride [Amaryl] 2 mg PO QAM 03/12/17 [History] Lactulose 10 gm PO BID 03/12/17 [History] Levothyroxine Sodium [Synthroid] 200 mcg PO QAM 03/12/17 [History] Oxygen 2 l NS AD 03/12/17 [History] Albuterol Sulfate [Ventolin Hfa] 2 puff IH Q4H PRN 08/15/17 [History] Carvedilol 3.125 mg PO BID 08/15/17 [History] Clobetasol Propionate [Clobex] 1 appl TP 3XW 08/15/17 [History] Fluticasone/Salmeterol [Advair Hfa 115-21 Mcg Inhaler] 2 puff IH BID 08/15/17 [ History] Furosemide [Lasix] 40 mg PO DAILY 02/16/18 [History] Gabapentin [Neurontin] 200 mg PO TID 08/15/17 [History] HYDROcodone/Acet 5/325 mg [[place] 5-325 mg] 1 tab PO HS PRN 08/15/17 [History] Linagliptin [Tradjenta] 5 mg PO DAILY 08/15/17 [History] Metformin HCl [Metformin HCl ER] 1,000 mg PO QPM 08/15/17 [History] Nystatin POWDER [Nystop] 1 appl TP BID PRN 08/15/17 [History] Ondansetron HCl [Zofran] 4 mg PO Q4-6H PRN 08/15/17 [History] Oxybutynin Chloride [Ditropan Xl] 10 mg PO DAILY 08/15/17 [History] Pantoprazole Sodium [Protonix] 40 mg PO DAILY 08/15/17 [History] Potassium Chloride [K-Tab ER] 20 meq PO BID 08/15/17 [History] Ticagrelor [Brilinta] 90 mg PO BID 08/15/17 [History] Triamcinolone Acet 0.1% CRM [Kenalog] 1 appl TP BID 08/15/17 [History] Vitamins A and D [Vitamin A and D] 1 each PO DAILY 08/15/17 [History] Vancomycin Oral Soln [Vancocin] 250 mg PO QID #40 udc 08/19/17 [Rx] metroNIDAZOLE [Flagyl] 500 mg PO TID #30 tablet 08/19/17 [Rx] Allergies/Adverse Reactions: 3 Allergy/AdvReac Type Severity Reaction Status Date / Time levofloxacin [From Levaquin] Allergy Hives Verified 03/12/17 16:35 Penicillins Allergy Hives Verified 03/12/17 16:35 morphine AdvReac Itching Verified 03/14/17 07:29 Certification: Further, I certify that my clinical findings support that this patient is homebound (i.e. absences from home require considerable and taxing effort and are for medical reasons or hindu services or infrequently or short duration when for other reasons) because: Homebound Reason: Leaving home requires considerable and taxing effort due to condition Attestation: My signature below is to certify that this patient is under my care and that I, or nurse practitioner, or a physician's medical office assistant working with me, has a face-to -face encounter with this patient.
--- NOTE | 2017-08-20 02:05 | Electrocardiograph Report ---
[place] [id number] Test Date: 2017-08-15 Pat Name: Jessica Whaley Department: [id number] Room: 3B Gender: F Missile Technician: ALTHEA : 1940 Requested By: Javier Jimenes Order Number: [id number] Reading MD: Catherine Triplett Measurements Intervals [place] Rate: 65 P: 65 TN: 206 QRS: -30 QRSD: 117 T: 53 QT: 437 QTc: 449 Interpretive Statements SINUS RHYTHM MODERATE INTRAVENTRICULAR CONDUCTION DELAY NONSPECIFIC T-WAVE ABNORMALITY Electronically Signed On 08-20-2017 2:04:08 EST by Catherine Triplett
== END 2017-08-19 12:30 | disposition home health service (06) | DRG 372 ==
LOC: EMEROO 14:15 → 3BNU 14:15
PROVIDERS: ADMIT Nurse Practitioner Family; ATTEND Registered Nurse